=== PATIENT | male | born 1950 | race Caucasian/White ===

== ENCOUNTER → 2017-07-04 | Outpatient (CLI) | payer MEDICARE ==
[~2017-07-04] MED LIST: ALLOPURINOL300 MG PO; ALPRAZOLAM1 MG PO; CARAFATE1 GM PO; CENTRUM SILVER1 EAC3 PO; CLOPIDOGREL75 MG PO; DOC-Q-LACE100 MG PO; FLOMAX0.4 MG PO; FUROSEMIDE40 MG PO; GLIMEPIRIDE2 MG PO; GLUCOPHAGE XR500 MG PO; HEMOCYTE PLUS1 EACH PO; KLOR-CON M2020 MEQ PO; LOVASTATIN40 MG PO; METHADONE HCL10 MG PO; MYRBETRIQ50 MG PO; NAPROXEN500 MG PO; NORCO 7.5-3251 EACH PO; PANTOPRAZOLE SO40 MG PO; PENTOXIFYLLINE400 MG PO; POTASSIUM CHLO10 ME1 PO; RAMIPRIL10 MG PO; REGADENOSON 0.4 MG/5 ML SYR IV ONE; SERTRALINE HCL50 MG PO; TIZANIDINE HCL4 MG PO; TOPROL XL50 MG PO; ZOLPIDEM TARTRA10 MG PO
--- NOTE | 2017-07-10 09:41 | Cardiology Report ---
DATE OF STUDY: July 04, 2017 LEXISCAN NUCLEAR STRESS TEST INDICATIONS: Chest pain. DESCRIPTION OF PROCEDURE: After informed consent, the patient was brought to the stress lab. He was given 11 millicuries of technetium-99 Myoview intravenous, and myocardial perfusion SPECT images in the horizontal long and short axis, and vertical axis. Subsequently, the patient was given 0.4 mg Lexiscan intravenously. Then the patient was given 33 millicuries of technetium-99 Myoview intravenously, and myocardial perfusion SPECT image obtained in the horizontal long and short axis, and vertical axis. Gating images were also obtained. Patient tolerated the procedure without any complications. REPORT: Baseline EKG shows sinus rhythm at 70 beats per minute. Normal axis. Normal intervals. PVCs. Nonspecific ST-T changes. PARAMETERS 1. Resting heart rate 67 beats per minute. 2. Maximum heart rate 92 beats per minute. 3. Resting blood pressure 165/73 mmHg. 4. Maximum blood pressure 177/81 mmHg. REASON FOR TERMINATION: End-point attained. INTERPRETATION 1. Negative chest pain. 2. Negative for arrhythmias. 3. Blood response consistent with Lexiscan. 4. No significant ST-T changes seen during Lexiscan infusion compared to baseline. 5. Analysis of SPECT images reveals uniform radioisotope uptake in all segments of the myocardium without any significant perfusion defects. CONCLUSION 1. No evidence of significant ischemia or infarction on this study. 2. No wall motion abnormalities. 3. Overall ejection fraction is 68%. Job#: [id number]
== END ==
LOC: NM 08:13
DX: I25.10 Atherosclerotic heart disease of native coronary artery without angina pectoris (principal)
CPT/HCPCS: 78452; 93017; A9502

== ENCOUNTER 2018-06-04 05:58 | Observation (INO) | payer MEDICARE ==
[2018-06-01 15:31] LABS: BASOPHILS # (AUTO) 0.1 (0.0-0.1); BASOPHILS % 0.6 % (0.0-1.0); EOSINOPHILS # (AUTO) 0.3 (0.0-0.4); EOSINOPHILS % 2.3 % (0.0-6.0); HEMOGLOBIN 13.1 g/dL (14.0-18.0); LYMPHOCYTES # (AUTO) 3.7 (1.0-3.2); LYMPHOCYTES % 31.9 % (18.0-39.1); MEAN CORPUSCULAR HEMOGLOBIN 24.4 pg (28-32); MEAN CORPUSCULAR HGB CONC 31.2 g/dL (31-35); MEAN CORPUSCULAR VOLUME 78.2 fL (81-99); MONOCYTES # (AUTO) 1.6 (0.2-0.8); MONOCYTES % 13.8 % (4.4-11.3); NEUTROPHILS # (AUTO) 5.9 (2.1-6.9); NEUTROPHILS % 50.9 % (38.7-80.0); PLATELET COUNT 172 x10e3/uL (140-360); RED BLOOD COUNT 5.37 x10e6/uL (4.3-5.7); RED CELL DISTRIBUTION WIDTH 19.5 % (11.7-14.4)
--- NOTE | 2018-06-01 15:32 | Diagnostic Imaging Report ---
EXAMINATION: CHEST 2 VIEWS INDICATION: Pre-op COMPARISON: Chest radiograph 03/30/2018. FINDINGS: The right lateral costophrenic angle is excluded from the field of view. TUBES and LINES: None. LUNGS: Lungs are well inflated. Lungs are clear. There is no evidence of pneumonia or pulmonary edema. PLEURA: No pleural effusion or pneumothorax. HEART AND MEDIASTINUM: The cardiomediastinal silhouette is unremarkable. There are atherosclerotic calcifications within the aorta. BONES AND SOFT TISSUES: No acute osseous lesion. Soft tissues are unremarkable. Mild degenerative changes of the thoracic spine. UPPER ABDOMEN: No free air under the diaphragm. IMPRESSION: No acute radiographic abnormality. Signed by: Dr. Flaco Rogel MD on 06/01/2018 3:28 PM
[2018-06-01 15:46] LABS: ANION GAP 13.7 mmol/L (8-16); BLOOD UREA NITROGEN 19 mg/dL (7-26); BUN/CREATININE RATIO 21 (6-25); CALCIUM 9.8 mg/dL (8.4-10.2); CARBON DIOXIDE 28 mmol/L (22-29); CHLORIDE 105 mmol/L (98-107); CREATININE, SERUM 0.89 mg/dL (0.72-1.25); EST GLOMERULAR FILTRATION RATE > 60 ML/MIN (60-); GLUCOSE 69 mg/dL (74-118); POTASSIUM 4.7 mmol/L (3.5-5.1); SODIUM 142 mmol/L (136-145)
[2018-06-01 19:14] LABS: EOSINOPHILS % (MANUAL) 1 % (0-7); LYMPHOCYTES % (MANUAL) 36 % (19-48); MONOCYTES % (MANUAL) 10 % (3.4-9.0); NEUTROPHILS % (MANUAL) 52 % (40-74); PLATELET ESTIMATE ADEQUATE; PLATELET MORPHOLOGY COMMENT NORMAL; RBC MORPHOLOGY COMMENT NORMAL
[~2018-06-04] VITALS: Ht 167.6 cm; Wt 106.1 kg
[~2018-06-04 05:58] MED LIST changes: +MONTELUKAST SOD10 MG PO; +MULTI-VITAMIN1 EACH; +POTASSIUM CHLO20 ME1; -REGADENOSON 0.4 MG/5 ML SYR IV ONE; +VESICARE5 MG PO
[2018-06-04] MEDS ORDERED: ROPIVACAINE 246.25 MG, EPINEPHRINE HCL 1:1000 0.5 MG, CLONIDINE HCL 0.08 MG, KETOROLAC ... INJ ONE ×5 (06:00)
--- OUTSIDE RECORDS SUMMARY | 2018-06-04 06:02 | XMS REPORT | Clinical Summary ---
Author Author [facility] Organization [facility] Address Unknown Phone Unavailable Care Team Providers Care Radio Interference Supervisor Name Role Phone Emiliano Lee MD PCP Allergies Comments Active Allergy Reactions Severity Noted Date No Known Drug Allergies 05/04/2016 Medications Not on file Active Problems Problem Noted Date Chronic ulcer of lower extremity 05/04/2016 Lymphedema 05/04/2016 Chronic venous insufficiency 05/04/2016 Last Assessment & Plan: 05/06/16 LLE GSV Ablation Family History Medical History Relation Name Comments Diabetes Mother Aneurysm Other Heart disease Other Hypertension Other Relation Name Status Comments Mother Other Social History Date Tobacco Use Types Packs/Day Years Used Never Smoker Alcohol Use Drinks/Week oz/Week Comments No Sex Assigned at Date Recorded Not on file Industry Job Start Date Occupation Not on file Not on file Not on file Travel End Travel History Travel Start No recent travel history available. Last Filed Vital Signs Not on file Plan of Treatment Health Maintenance Due Date Last Done Comments COLON CANCER SCREENING 1999 SHINGRIX VACCINE (1 of 2) 1999 ZOSTER VACCINE 2009 PNEUMOCOCCAL 2014 POLYSACCHARIDE VACCINE AGE 65 AND OVER PNEUMOCOCCAL-13 2014 INFLUENZA VACCINE 01/24/2018 Results Not on fileafter 06/03/2017 Insurance Payer Benefit Subscriber ID Type Phone Address Plan / Group [employer] C[employer] xxxxxxxxxxx HMO [employer] [place] HMO MCR ADV Advance Directives Patient has advance care planning documents on file. For more information, linus e contact: Lio Santana [address] [place], [place] [address] [place] [address]
--- OUTSIDE RECORDS SUMMARY | 2018-06-04 06:02 | XMS REPORT | Continuity of Care Document ---
Author Author [facility] Interface Address Unknown Phone Unavailable Problems Problem Status Onset Date Classification Date Reported Comments Source FESS Active 01/15/2018 [facility] R93.0 Active 11/30/2017 [facility] Pain in left hip 09/27/2017 12/26/2017 [facility] [place] Urgency of urination 07/28/2017 10/30/2017 [facility] UNK Active 06/27/2017 [facility] 924.9 - CONTUSION NOS Active 06/07/2013 [facility] [place] CHD (CORONARY HEART DISEASE)/ BP (HIGH B Active 11/30/2012 [facility] FALL Active 06/08/2012 [facility] Acid reflux Active Problem 12/26/2017 [facility] [place], [facility] [place] ADD Resolved Problem 12/26/2017 [facility] [place], [facility] [place] Anxiety Active Problem 12/26/2017 [facility] [place], [facility] [place] Arthritis Resolved Problem 12/26/2017 [facility] [place], [facility] [place] Chronic pain Resolved Problem 12/26/2017 [facility] [place], [facility] [place] Depression Active Problem 12/26/2017 [facility] [place], [facility] [place] Diabetes mellitus Active Problem 12/26/2017 [facility] [place], [facility] [place] Gout Active Problem 12/26/2017 [facility] [place], [facility] [place] Heart attack Resolved Problem 12/26/2017 [facility] [place], [facility] [place] Hyperlipidemia Active Problem 12/26/2017 [facility] [place], [facility] [place] Hypertension Active Problem 12/26/2017 [facility] [place], [facility] [place] Insomnia Resolved Problem 12/26/2017 [facility] [place], [facility] [place] Chest pain, unspecified 11/03/2017 [facility] [place] Acid reflux Resolved Problem 12/07/2012 [facility] [place] ADD Resolved Problem 12/07/2012 [facility] [place],[facility] Anxiety Resolved Problem 12/07/2012 [facility] [place],[facility] Arthritis Resolved Problem 12/07/2012 [facility] [place],[facility] Chronic pain Resolved Problem 12/07/2012 [facility] [place],[facility] Gout Resolved Problem 12/07/2012 [facility] [place],[facility] Heart attack Resolved Problem 12/07/2012 [facility] [place],[facility] Hyperlipidemia Resolved Problem 12/07/2012 [facility] [place],[facility] Hypertension Resolved Problem 12/07/2012 [facility] [place],[facility] Insomnia Resolved Problem 12/07/2012 [facility] [place],[facility] Benign prostatic hyperplasia with lower urinary tract symptoms 10/30/2017 [facility] Frequency of micturition 10/30/2017 [facility] Essential hypertension 10/30/2017 [facility] 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 10/30/2017 [facility] Old myocardial infarction 10/30/2017 [facility] Type 2 diabetes mellitus without complications 10/30/2017 [facility] Pure hypercholesterolemia, unspecified 10/30/2017 [facility] Personal history of Methicillin resistant Staphylococcus aureus infection 10/30/2017 [facility] prison use of oral hypoglycemic drugs 10/30/2017 [facility] prison use of anticoagulants 10/30/2017 [facility] Presence of aortocoronary bypass graft 10/30/2017 [facility] Gout, unspecified 10/30/2017 [facility] Medications Medication Details Route Status Patient Instructions Ordering Provider Order Date Source lidocaine (ANES) Route: IV, Drug form: INJ, ONCE, Stop date: 07/24/17 13:14:00 [employer] Inactive 07/24/2017 [facility] propofol (ANES) Route: IV, Drug form: INJ, ONCE, Stop date: 07/24/17 13:14:00 [employer] Inactive 07/24/2017 [facility] fentaNYL (ANES) Route: IV, Drug form: INJ, ONCE, Stop date: 07/24/17 13:14:00 [employer] Inactive 07/24/2017 [facility] metoclopramide (ANES) Route: IV, Drug form: INJ, ONCE, Stop date: 07/24/17 13:14:00 [employer] Inactive 07/24/2017 [facility] Amidate (ANES) Route: IV, Drug form: INJ, ONCE, Stop date: 07/24/17 13:14:00 [employer] Inactive 07/24/2017 [facility] ondansetron (ANES) Route: IV, Drug form: INJ, ONCE, Stop date: 07/24/17 13:14:00 [employer] Inactive 07/24/2017 [facility] midazolam (ANES) Route: IV, Drug form: SOLN, ONCE, Stop date: 07/24/17 13:14:00 [employer] Inactive 07/24/2017 [facility] sodium citrate (ANES) Route: PO, Drug Form: INJ, ONCE, Stop date: 07/24/17 13:14:00 [employer] Inactive 07/24/2017 [facility] ciprofloxacin (ANES) Route: IV, Drug form: INJ, ONCE, Stop date: 07/24/17 13:14:00 [employer] Inactive 07/24/2017 [facility] famotidine (ANES) Route: IV, Drug form: INJ, ONCE, Stop date: 07/24/17 13:14:00 [employer] Inactive 07/24/2017 [facility] Lactated Ringers Injection IV (ANES) 1000 mL Route: IV, Total Volume: 1,000, Start date: 07/24/17 12:28:00 [employer], Stop date: 07/24/17 13:28:00 [employer] Inactive 07/24/2017 [facility] Ciprofloxacin 500 MG Oral Tablet [Cipro] 500 mg=1 tab, PO, Q12H, for UTI, X 3 day, # 6 tab, 0 Refill(s) No Longer Active 07/24/2017 [facility] Calcium Chloride 0.0014 MEQ/ML / Potassium Chloride 0.004 MEQ/ML / Sodium Chloride 0.103 MEQ/ML / Sodium Lactate 0.028 MEQ/ML Injectable Solution 1,000 mL, Rate: 25 ml/hr, Infuse over: 40 hr, Route: IV, Dosing Weight 115 kg, Total Volume: 1,000, Start date: 07/24/17 11:53:00 [employer], Duration: 30 day, Stop date: 08/23/17 11:52:00 [employer], 2.35, m2 Inactive 07/24/2017 [facility] Sodium Chloride 0.9% IV 1000 mL 1,000 mL, Rate: 25 ml/hr, Infuse over: 40 hr, Route: IV, Dosing Weight 115 kg, Total Volume: 1,000, Start date: 07/24/17 11:53:00 [employer], Duration: 30 day, Stop date: 08/23/17 11:52:00 [employer], 2.35, m2 Inactive 07/24/2017 [facility] Botulinum Toxin Type A 200 unit, Route: InFILtration(local), Drug form: INJ, ONCE, Dosing Weight 115, kg, Start date: 07/24/17 11:44:00 [employer], Stop date: 07/24/17 11:44:00 CSTNotes: "TO BE RECONSTITUTED AND ADMINISTERED ON LY BY A PHYSICIAN" Reconstitute with preservative free NS only. Stability=4 hours after reconstitution. (Same As: Botox) WASTE: F/P - Red; E -Red Inactive 07/24/2017 [facility] Botulinum Toxin Type A 100 unit, Route: SUB-Q, Drug form: INJ, ONCE, Dosing Weight 115, kg, Start date: 07/21/17 15:27:00 [employer], Stop date: 07/21/17 15:27:00 CSTNotes: "TO BE RECONSTITUTED AND ADMINISTERED ONLY BY A PHYSICIAN" Reconstitute with preservative free NS only. Stability=4 hours after reconstitution. (Same As: Botox) WASTE: F/P - Red; E -Red No Longer Active 07/21/2017 [facility] ONAbotulinumtoxinA 100 unit, Route: INJ, Drug form: INJ, ONCALL, Start date: 07/12/17 6:00:00 [employer], Duration: 1 doses or timesNotes: "TO BE RECONSTITUTED AND ADMINISTERED ONLY BY A PHYSICIAN" Reconstitute with pr eservative free NS only. Stability=4 hours after reconstitution. (Same As: Botox) WASTE: F/P - Red; E -Red No Longer Active 07/12/2017 [facility] rimabotulinumtoxinB Route: SUB-Q, ONCE, Dosing Weight 115, kg, Start date: 07/10/17 13:55:00 [employer], Stop date: 07/10/17 13:55:00 [employer] No Longer Active 07/10/2017 [facility] One-A-Day Men's Health Formula oral tablet 1 tab, PO, BID, 0 Refill(s) Active 07/04/2017 [facility] Ferrous fumarate 324 MG Oral Tablet [Ferrocite] 324 mg=1 tab, PO, BID, 0 Refill(s) Active 07/04/2017 [facility] tamsulosin 0.4 mg oral capsule 0.4 mg=1 cap, PO, Daily, 0 Refill(s) Active 07/04/2017 [facility] sucralfate 1 g oral tablet 1 gm=1 tab, PO, BID, 0 Refill(s) Active 07/04/2017 [facility] sertraline 50 mg oral tablet 50 mg=1 tab, PO, Bedtime, 0 Refill(s) Active 07/04/2017 [facility] ramipril 10 mg oral capsule 10 mg=1 cap, PO, Daily, 0 Refill(s) Active 07/04/2017 [facility] pantoprazole 40 mg oral enteric coated tablet 40 mg=1 tab, PO, BID, 0 Refill(s) Active 07/04/2017 [facility] Metformin hydrochloride 500 MG Oral Tablet 500 mg=1 tab, PO, BID, 0 Refill(s) Active 07/04/2017 [facility] potassium chloride 20 mEq oral tablet, extended release 20 mEq=1 tab, PO, Daily, 0 Refill(s) Active 07/04/2017 [facility] metoprolol 50 mg oral tablet, extended release 50 mg=1 tab, PO, Daily, 0 Refill(s) Active 07/04/2017 [facility] lovastatin 40 mg oral tablet 40 mg=1 tab, PO, Bedtime, 0 Refill(s) Active 07/04/2017 [facility] glimepiride 1 mg oral tablet 1 mg=1 tab, PO, Daily, 0 Refill(s) Active 07/04/2017 [facility] Alprazolam 1 MG Oral Tablet 1 mg=1 tab, PO, PRN, 0 Refill(s) Active 07/04/2017 [facility] Allopurinol 300 mg, PO, Daily, 0 Refill(s) Active 07/03/2017 [facility] clopidogrel 75 MG Oral Tablet [Plavix] 75 mg=1 tab, PO, Daily, 0 Refill(s) Active 07/03/2017 [facility] Methadone See Instructions, 10 mg PO; 3 tablets in AM; 1 in PM, 0 Refill(s) Active 07/03/2017 [facility] clindamycin 150 mg oral capsule 300 mg, 2 cap, PO, Q6H, 80 cap, Substitution Allowed, CAP PO Active [facility] 06/08/2012 [facility] Allergies, Adverse Reactions, Alerts Substance Category Reaction Severity Reaction type Status Date Reported Comments Source Immunizations Immunization Date Given Site Status Last Updated Comments Source Results Order Name Results Value Reference Range Date Interpretation Comments Source Sinus wo contrast CT Sinus wo contrast CT Study: Sinus wo contrast CT 12/14/2017 2:56 PM CDT Ordering Physician: Valerie Doyle MD Clinical Indication: - R93.0 Abnormal findings on diagnostic imaging of skull and head, not elsewhere classified. Paranasal sinus disease. Difficulty breathing. Comparison: November 14, [address] images are obtained on a multidetector helical CT scanner. Sagittal and coronal reformats are acquired. Total exam DLP is 670 MGY -- CM. Frontal sinuses: The frontal sinuses are adequately developed and clear. Nasofrontal ducts are widely patent and clear. Ethmoid air cells: Minimal mucosal thickening is present along anterior ethmoid septations, slightly worse on the left than the right. Posterior ethmoids are clear. Sphenoethmoidal recesses are patent and structurally adequate. Maxillary antra: Mild circumferential mucosal thickening is present in the right maxillary antrum. The right ostiomeatal complex is structurally adequate, but is mildly narrowed due to minimal mucosal thickening. The left maxillary antrum is almost completely opacified with high density, inspissated debris. There is marked opacification of the left ostium and proximal infundibulum. The left hiatus semilunaris is patent and clear. Sphenoid sinuses: Sphenoid sinuses are clear. Nasal cavity: 3 mm [id number] nasal septal deviation is present. There is a 2 mm right lateralizing septal spur which mildly indents mucosa overlying the medial surface of the right inferior turbinate. Hypertrophy of the left inferior turbinate is present. There is paradoxical curvature of the right middle turbinate, with small right middle turbinate sheree bullosa. Miscellaneous: The marcie addie, cribriform plate and planum sphenoidale appear intact. Mastoid air cells are clear. The posterior nasopharynx is grossly unremarkable. The patient has undergone previous left cataract surgery. Visualized portions of brain parenchyma are grossly unremarkable. There are lucencies at the apices of maxillary teeth bilaterally, compatible with dental caries. IMPRESSION: Minimal bilateral ethmoid as well as mild right and near complete left maxillary sinus opacification is present. Sinusitis is chronic. There is marked soft tissue opacification of the left ostium and six-month and fibula. Mild soft tissue narrowing of the right ostiomeatal complex is seen. Mild sgnk-ky-xijxr nasal septal deviation noted, with tiny right lateralizing septal spur which minimally indents mucosa overlying the heel surface of the right inferior turbinate. There is no significant interval change as compared to the previous CT scan of the brain dated 11/14/2017. SL: [id number] 12/14/2017 - - Read by: Sylvia Nicholas MD Dictated Date/time: 12/14/17 16:08 Electronically Signed by: Sylvia Nicholas MD 12/14/17 16:44 FINAL REPORT [place] Ribs unilateral DX Ribs unilateral DX EXAM: Ribs unilateral DX HISTORY: - right rib pain; contusion COMPARISON: Chest radiograph 11/14/2017 Right rib series IMPRESSION: There is a nondisplaced fracture of the lateral aspect of the right fifth and possibly sixth rib seen on image 6. 11/21/2017 - - Read by: Kin Ramirez MD Dictated Date/time: 11/22/17 09:30 Electronically Signed by: Kin Ramirez MD 11/22/17 09:33 FINAL REPORT [facility] Chest 2 views DX Chest 2 views DX EXAM: Chest 2 views DX HISTORY: - R07.9 Chest pain, unspecified COMPARISON: 06/07/2013 The heart size is normal. The lungs are clear. There is no pleural effusion or pneumothorax. Partially visualized right shoulder arthroplasty. Previously seen spinal catheter has been removed. IMPRESSION: No acute abnormality. 10/24/2017 - - Read by: Kin Ramirez MD Dictated Date/time: 10/24/17 15:23 Electronically Signed by: Kin Ramirez MD 10/24/17 15:25 FINAL REPORT [facility] Hip 2/3 views uni w pelvis DX Hip 2/3 views uni w pelvis DX HISTORY: - left hip pain TECHNIQUE: AP view of the pelvis and frog-leg lateral view of the left hip. COMPARISON: None available. FINDINGS: Normal mineralization and anatomic alignment of the bones without fracture or dislocation. The joint spaces are well-maintained without evidence of effusion. Lumbar spondylosis is partially visualized. IMPRESSION: No acute osseous injury. [id number] 09/19/2017 - - Read by: Jesus Harris MD Dictated Date/time: 09/19/17 15:23 Electronically Signed by: Jesus Harris MD 09/19/17 15:24 FINAL REPORT [facility] CHEM PANEL eGFR 84 mL/min/1.73m2 07/03/2017 Result Comment: The eGFR is calculated using the CKD-EPI formula. In most young, healthy individuals the eGFR will be >90 mL/min/1.73m2. The eGFR declines with age. An eGFR of 60-89 may be normal in some populations, particularly the elderly, for whom the CKD-EPI formula has not been extensively validated. Use of the eGFR is not recommended in the following populations: Individuals with unstable creatinine concentrations, including patients and those with serious co-morbid conditions. Patients with extremes in muscle mass or diet. The data above are obtained from the National Kidney Disease Education Program (NKDEP) which additionally recommends that when the eGFR is used in patients with extremes of body mass index for purposes of drug dosing, the eGFR should be multiplied by the estimated BMI. [facility] CHEM PANEL Potassium Lvl 4.2 meq/L 3.5 - 5.1 07/03/2017 [facility] CHEM PANEL Chloride Lvl 101 meq/L 95 - 109 07/03/2017 [facility] CHEM PANEL Calcium Lvl 9.1 mg/dL 8.5 - 10.5 07/03/2017 [facility] CHEM PANEL CO2 28 meq/L 24 - 32 07/03/2017 [facility] CHEM PANEL Glucose Lvl 142 mg/dL 70 - 99 07/03/2017 [facility] CHEM PANEL BUN 19 mg/dL 7 - 22 07/03/2017 [facility] CHEM PANEL Creatinine Lvl 0.93 mg/dL 0.50 - 1.40 07/03/2017 [facility] CHEM PANEL Sodium Lvl 137 meq/L 135 - 145 07/03/2017 [facility] CHEM PANEL AGAP 12.2 meq/L 10.0 - 20.0 07/03/2017 [facility] HEMATOLOGY Eosinophils # 0.2 K/CMM 0.0 - 0.5 07/03/2017 [facility] HEMATOLOGY Basophils # 0.1 K/CMM 0.0 - 0.2 07/03/2017 [facility] HEMATOLOGY Basophils 0.5 % 0.0 - 1.0 07/03/2017 [facility] HEMATOLOGY Segs-Bands # 7.1 K/CMM 1.5 - 8.1 07/03/2017 [facility] HEMATOLOGY Monocytes # 1.4 K/CMM 0.0 - 0.8 07/03/2017 [facility] HEMATOLOGY Lymphocytes # 2.4 K/CMM 1.0 - 5.5 07/03/[address] [facility] Eosinophils 2.2 % 0.0 - 4.0 07/03/[address] [facility] Lymphocytes 21.6 % 20.0 - 40.0 07/03/2017 [facility] HEMATOLOGY Segs 63.2 % 45.0 - 75.0 07/03/[address] [facility] Monocytes 12.5 % 2.0 - 12.0 07/03/[address] [facility] MPV 8.5 fL 7.4 - 10.4 07/03/[address] [facility] MCH 26.2 pg 27.0 - 31.0 07/03/[address] [facility] RDW 16.1 % 11.5 - 14.5 07/03/[address] [facility] MCV 80.0 fL 80.0 - 94.0 07/03/[address] [facility] Platelet 178 K/CMM 133 - 450 07/03/[address] [facility] MCHC 32.8 g/dL 32.0 - 36.0 07/03/[address] [facility] Hgb 14.1 g/dL 14.0 - 18.0 07/03/[address] [facility] Hct 43.1 % 42.0 - 54.0 07/03/[address] [facility] RBC 5.38 M/CMM 4.70 - 6.10 07/03/[address] [facility] WBC 11.3 K/CMM 3.7 - 10.4 07/03/2017 [facility] URINE AND STOOL UA RBC 1 /HPF 0 - 2 07/03/2017 [facility] URINE AND STOOL UA Color Ltyellow 07/03/2017 [facility] URINE AND STOOL UA Urobilinogen <=1.0 mg/dL 0.1 - 1.0 07/03/2017 [facility] URINE AND STOOL UA Blood Negative (07/03/17 5:00 PM) Negative 07/03/2017 [facility] URINE AND STOOL UA Bili Negative *NA* (07/03/17 5:00 PM) Negative 07/03/2017 [facility] URINE AND STOOL UA Leuk Est Negative (07/03/17 5:00 PM) Negative 07/03/2017 [facility] URINE AND STOOL UA Nitrite Negative (07/03/17 5:00 PM) Negative 07/03/2017 [facility] URINE AND STOOL UA Sq Epi Occasional /LPF Few /LPF 07/03/2017 [facility] URINE AND STOOL UA WBC null 0 - 5 07/03/2017 [facility] URINE AND STOOL UA Turbidity Clear (07/03/17 5:00 PM) Clear 07/03/2017 [facility] URINE AND STOOL UA Spec Grav 1.014 <=1.030 07/03/2017 [facility] URINE AND STOOL UA pH 6.0 5.0 - 8.0 07/03/2017 [facility] URINE AND STOOL UA Protein Negative mg/dL Negative mg/dL 07/03/2017 [facility] URINE AND STOOL UA Glucose Negative mg/dL Negative mg/dL 07/03/2017 [facility] URINE AND STOOL UA Ketones Negative mg/dL Negative mg/dL 07/03/2017 [facility] Knee 3 Views Bilateral DX Knee 3 Views Bilateral DX EXAMINATION: Bilateral knees 3 views each. HISTORY: Bilateral knee pain; bilateral knee osteoarthritis FINDINGS: Frontal, oblique, and lateral views of each knee are performed and compared to 05/11/2015. On the left, there is unchanged severe medial and moderate to severe patellofemoral compartment, bicompartmental left knee osteoarthritis. There is severe lateral subluxation at the femorotibial joint and left genu varus alignment, unchanged. There is a moderate-sized left knee effusion. There is no acute fracture identified. There is an ossicle within the medial meniscus which is completely extruded within the medial gutter. On the right, there is unchanged severe medial compartment predominant, tricompartmental right knee osteoarthritis with mild to moderate lateral subluxation at the femorotibial joint. There is a moderate size right knee effusion. There is no acute fracture identified. IMPRESSION: 1. Unchanged severe medial and moderate to severe patellofemoral compartment, bicompartmental left knee osteoarthritis with a moderate-sized left knee effusion. 2. Unchanged severe medial compartment predominant, tricompartmental right knee osseous arthritis with a moderate size right knee effusion. 3. Unchanged lateral subluxation at the bilateral femorotibial joints, severe on the left. There is also left genu varus alignment. 05/17/2016 - - Read by: Pranav Kamara MD Dictated Date/time: 05/17/16 15:01 Electronically Signed by: Pranav Kamara MD 05/17/16 15:05 FINAL REPORT [facility] Knee 3 Views Bilateral DX Knee 3 Views Bilateral DX Bilateral knee x-ray 3 views Clinical History: 65-year-old male with bilateral knee pain right more than left. Comparison: 01/28/2015. Bones are osteopenic. Right knee has 3 compartmental joint space narrowing with prominent osteophytes at the posterior tibial plateau, medial tibial plateau and lateral femoral condyle. There is mild lateral displacement of the tibial plateau on the femur. The proximal fibula is unremarkable. There is no joint effusion. Left knee has subluxation of the tibia lateral on the femoral condyles. There are marginal osteophytes and narrowing of all three joint compartments. No acute fracture or loose body is seen. No significant joint effusion identified. Impression: Severe bilateral knee osteoarthritis similar since 01/28/2015 with mild lateral subluxation of both tibias on the femurs. 05/11/2015 - - Read by: Sami Asif MD Dictated Date/time: 05/11/15 16:01 Electronically Signed by: Sami Asif 05/11/15 16:07 FINAL REPORT JANETTDanish [facility] Knee 3 Views Bilateral DX Knee 3 Views Bilateral DX BILATERAL KNEE SERIES CLINICAL HISTORY: Bilateral knee pain. COMPARISON IMAGIN09/12/2012 radiography. FINDINGS: 6 views of the knees were submitted for interpretation. Bones appear demineralized. Severe tricompartmental osteoarthritis is present bilaterally. These changes include loss of joint space, subluxation, subchondral sclerosis, and marginal osteophytes. Bilateral moderate-sized joint effusions and varus deformities are noted. There is no fracture. IMPRESSION: Severe bilateral osteoarthritis. 01/28/2015 - - Read by: Bronson Hoover MD Dictated Date/time: 01/28/15 14:04 Electronically Signed by: Bronson Hoover MD 01/28/15 14:05 FINAL REPORT [facility] [place] Ribs bilateral Ribs bilateral BILATERAL RIB SERIES CLINICAL HISTORY: fall COMPARISON IMAGING: None. FINDINGS: 6 images of the ribs were submitted for review. There are minimally displaced fractures of the right lateral 6, 8 and possibly 7th ribs. Lungs are clear. Cardiomediastinal silhouette is within normal limits. No obvious pleural fluid is identified. Surgical clips in the right upper abdomen and spinal stimulator device incidentally noted. IMPRESSION: Minimally displaced right rib fractures of the 6th, 8th and possibly seventh rib. 06/07/2013 - - Read by: Geraldine Rachel Dictated Date/time: 06/07/13 14:40 Electronically Signed by: Geraldine Rachel DO 06/07/13 14:50 FINAL REPORT [facility] Chest 2 views Chest 2 views CHEST RADIOGRAPHY CLINICAL HISTORY: Fall COMPARISON IMAGING: None. FINDINGS: Two views of the chest were acquired and submitted for evaluation. No pleural fluid is identified. The contour of the cardiac silhouette is within normal limits. There is no significant pulmonary consolidation or nodularity. Bones appear osteopenic. DEXA scan should be considered if not already performed. right rib fractures are better noted on rib series. No pneumothorax. Right glenohumeral head arthroplasty and spinal stimulator leads noted. IMPRESSION: 1. No acute cardiopulmonary abnormality. 2. Right rib fractures better evaluated on rib series study. No pneumothorax. 06/07/2013 - - Read by: Geraldine Rachel Dictated Date/time: 06/07/13 14:50 Electronically Signed by: Geraldine Rachel DO 06/07/13 14:53 FINAL REPORT [facility] URINALYSIS UA Color Ltyellow 06/08/2012 NA [facility] URINALYSIS UA Urobilinogen <=1.0 mg/dL
*NA*
(06/08/2012 07:46:00) <sup> </sup> 0.1 - 1.0 06/08/2012 [facility] URINALYSIS UA Sq Epi None Seen 06/08/2012 [facility] URINALYSIS UA Leuk Est Negative (06/08/2012 07:46:00) Negative 06/08/2012 Normal [facility] URINALYSIS UA Turbidity Clear (06/08/2012 07:46:00) Clear 06/08/2012 Normal [facility] URINALYSIS UA Spec Grav 1.008 <=1.030 06/08/2012 Normal [facility] URINALYSIS UA pH 7.0 5.0 - 8.0 06/08/2012 Normal [facility] URINALYSIS UA Glucose Negative mg/dL *NA* (06/08/2012 07:46:00) Negative 06/08/2012 NA [facility] URINALYSIS UA Protein Negative mg/dL (06/08/2012 07:46:00) Negative 06/08/2012 Normal [facility] URINALYSIS UA Ketones Negative mg/dL *NA* (06/08/2012 07:46:00) Negative 06/08/2012 NA [facility] URINALYSIS UA Blood Negative (06/08/2012 07:46:00) Negative 06/08/2012 Normal [facility] URINALYSIS UA Bili Negative *NA* (06/08/2012 07:46:00) Negative 06/08/2012 NA [facility] URINALYSIS UA Nitrite Negative (06/08/2012 07:46:00) Negative 06/08/2012 Normal [facility] CHEMISTRY eGFR 80 mL/min/1.73m2 06/08/2012 NA 1Result Comment: The eGFR is calculated using the CKD-EPI formula. In most young, healthy individuals the eGFR will be >90 mL/min/1.73m2. The eGFR declines with age. An eGFR of 60-89 may be normal in some populations, particularly the elderly, for whom the CKD-EPI formula has not been extensively validated. Use of the eGFR is not recommended in the following populations: Individuals with unstable creatinine concentrations, including patients and those with serious co-morbid conditions. Patients with extremes in muscle mass or diet. The data above are obtained from the National Kidney Disease Education Program (NKDEP) which additionally recommends that when the eGFR is used in patients with extremes of body mass index for purposes of drug dosing, the eGFR should be multiplied by the estimated BMI. [facility] CHEMISTRY Calcium Lvl 8.7 mg/dL 8.5 - 10.5 06/08/2012 Normal [facility] CHEMISTRY Chloride Lvl 97 meq/L 95 - 109 06/08/2012 Normal [facility] CHEMISTRY CO2 31 meq/L 24 - 32 06/08/2012 Normal [facility] CHEMISTRY Glucose Lvl 206 mg/dL 70 - 99 06/08/2012 [place] 2Interpretive Data: Adult reference range values reflect the clinical guidelines of the [place] [employer]. [facility] CHEMISTRY BUN 14 mg/dL 7 - 22 06/08/2012 Normal [facility] CHEMISTRY Potassium Lvl 3.8 meq/L 3.5 - 5.1 06/08/2012 Normal [facility] CHEMISTRY Creatinine Lvl 1.0 mg/dL 0.5 - 1.4 06/08/2012 Normal [facility] CHEMISTRY Sodium Lvl 137 meq/L 135 - 145 06/08/2012 Normal [facility] CHEMISTRY AGAP 12.8 meq/L 10.0 - 20.0 06/08/2012 Normal [facility] HEMATOLOGY PTT 29.5 s 22.9 - 35.8 06/08/2012 Normal 4Interpretive Data: Heparin Therapeutic Range: 57 - 92 Seconds [facility] HEMATOLOGY PT 15.4 s 12.0 - 14.7 06/08/2012 [facility] HEMATOLOGY INR 1.20 0.85 - 1.17 06/08/2012 [place] 3Interpretive Data: RECOMMENDED RANGES FOR PROTIME INR: 2.0-3.0 for most medical and surgical thromboembolic states. 2.5-3.5 for artificial heart valves and recurrent embolism. INR SHOULD BE USED ONLY FOR PATIENTS ON STABLE ANTICOAGULANT THERAPY. [facility] HEMATOLOGY MPV 7.5 fL 7.4 - 10.4 06/08/2012 Normal [facility] HEMATOLOGY MCHC 32.5 g/dL 32.0 - 36.0 06/08/2012 Normal [facility] HEMATOLOGY Platelet 188 K/CMM 133 - 450 06/08/2012 Normal [facility] HEMATOLOGY RDW 17.6 % 11.5 - 14.5 06/08/2012 [facility] HEMATOLOGY MCV 76.7 fL 80.0 - 94.0 06/08/2012 LOW [facility] HEMATOLOGY MCH 24.9 pg 27.0 - 31.0 06/08/2012 LOW [facility] HEMATOLOGY Hgb 10.5 g/dL 14.0 - 18.0 06/08/2012 LOW [facility] HEMATOLOGY Hct 32.4 % 42.0 - 54.0 06/08/2012 LOW [facility] HEMATOLOGY RBC 4.22 M/CMM 4.70 - 6.10 06/08/2012 LOW [facility] HEMATOLOGY WBC 17.9 K/CMM 3.7 - 10.4 06/08/2012 [facility] Vital Signs Vital Sign Value Date Comments Source Systolic (mm Hg) 144 07/24/2017 [facility] Diastolic (mm Hg) 76 07/24/2017 [facility] Systolic (mm Hg) 148 07/24/2017 [facility] Diastolic (mm Hg) 68 07/24/2017 [facility] Respitory Rate 16 07/24/2017 [facility] Respitory Rate 14 07/24/2017 [facility] Systolic (mm Hg) 133 07/24/2017 [facility] Diastolic (mm Hg) 67 07/24/2017 [facility] Respitory Rate 12 07/24/2017 [facility] Heart Rate 62 07/03/2017 [facility] Temperature Oral (F) 98.0 F 07/03/2017 [facility] Weight 115 07/03/2017 [facility] BMI Calculated 40.92 07/03/2017 [facility] Height 167.64 cm 07/03/2017 [facility] Weight 109.091 12/05/2012 [facility] Height 167.64 cm 12/05/2012 [facility] Weight 110.000 06/08/2012 [facility] Height 167.64 cm 06/08/2012 [facility] Encounters Location Location Details Encounter Type Encounter Number Reason For Visit Attending Provider ADM Date DC Date Status Source [facility] Emergency [id number] FALL ASEAnabela SOUDION 06/08/2012 06/08/2012 Active [facility] Outpatient [id number] CHD (CORONARY HEART DISEASE)/ BP (HIGH BLOOD PRESSURE) JEFFERSON AMES 12/05/2012 Active [facility] OD [id number] 924.9 - CONTUSION NOS KALYANI DOYLE 06/07/2013 06/07/2013 Active [facility] [place] [facility] [place] [facility] [id number] Tera Gallo 01/28/2015 01/29/2015 [facility] [place] [facility] [place] [facility] [id number] Tera Gallo 05/11/2015 05/12/2015 [facility] [place] [facility] [place] [facility] [id number] Tera Gallo 05/17/2016 05/18/2016 [facility] [place] [facility] [id number] Oscar Moffett 07/24/2017 07/24/2017 [facility] [place] [facility] [id number] Kalyani Burr 09/19/2017 09/20/2017 [facility] [place] [facility] [place] [facility] [id number] Inez Oates 10/24/2017 10/25/2017 [facility] [place] [facility] [place] Out[facility] Diag Services [id number] Kalyani Burr 11/14/2017 11/15/2017 [facility] [place] Out[facility] [id number] Kalyani Burr 11/21/2017 11/22/2017 [facility] [place] [facility] Outpatient [id number] Valerie Doyle 12/14/2017 12/15/2017 [facility] Procedures Procedure Code Date Perfomer Comments Source Amputation great toe [id number] [facility] [place] Angiogram<sup>1</sup> 72270029 approx 2003 [facility] [place] Operation<sup>2, 3</sup> 416920154 tendon one side; heel spur other sideright heel spur [facility] [place] Operation<sup>4</sup> [id number] hardware removed the following week due to [facility] [place] [facility] 605987751 [facility] [place] Shoulder replacement [id number] [facility] [place] Amputation great toe 85530560 [facility] Angiogram<sup>1</sup> 84621547 approx 2003 [facility] [place] Operation<sup>2, 3</sup> 002983954 tendon one side; heel spur other sideright heel spur [facility] Operation<sup>4</sup> 060904419 hardware removed the following week due to infection [facility] Operation [id number] [facility] Shoulder replacement [id number] [facility] [place] Amputation great toe 08830266 [facility] Angiogram<sup>1</sup> 09097627 approx 2003 [facility] Operation<sup>2, 3</sup> 524358494 tendon one side; heel spur other sideright heel spur [facility] Operation<sup>4</sup> 856195980 hardware removed the following week due to infection [facility] Operation [id number] [facility] Shoulder replacement [id number] [facility]
--- OUTSIDE RECORDS SUMMARY | 2018-06-04 06:03 | XMS REPORT | Summary of Care ---
Author Author [facility] [place] Organization [facility] [place] Address Unknown Phone Unavailable Encounter HQ Encntr_shanique(FIN) [id number] Date(s): 05/17/16 - 05/17/16 [facility] [place] [address] [place] [phone] Discharge Disposition: Home or Self Care Attending Physician: Tera Gallo MD Vital Signs No data available for this section Problem List Condition Effective Dates Status Health Status Informant Acid Resolved reflux(Confirmed) ADD(Confirmed) Resolved Anxiety(Confirmed) Resolved Arthritis(Confirmed) Resolved Chronic Resolved pain(Confirmed) Gout(Confirmed) Resolved Heart Resolved attack(Confirmed) Hyperlipidemia(Confi Resolved rmed) Hypertension(Confirm Resolved ed) Insomnia(Confirmed) Resolved Allergies, Adverse Reactions, Alerts Substance Reaction Severity Status NKDA Active Medications No data available for this section Results No data available for this section Immunizations No data available for this section Procedures No data available for this section Social History No data available for this section Assessment and Plan No data available for this section
--- OUTSIDE RECORDS SUMMARY | 2018-06-04 06:03 | XMS REPORT ---
[facility] Address Unknown Phone Unavailable Care Team Providers Care Rehab Nurse Name Role Phone KALYANI GONZALEZ Unavailable Unavailable ALYSON ORDONEZ Unavailable Unavailable Payers Payer Name Policy Type Policy Number Effective Date Expiration Date Problems This patient has no known problems. Allergies, Adverse Reactions, Alerts Allergy Name Allergy Type Status Severity Reaction(s) Onset Date Inactive Date Treating Clinician Comments No Known Allergies DA Active U 2013-08-01 00:00:00 Medications This patient has no known medications. Results Test Description Test Time Test Comments Text Results Atomic Results Result Comments CHEST 2 VIEWS 2018-06-01 15:27:00 [place] [address] Patient Name: TERRIE PUENTES MR #: [id number] : 1950 Age/Sex: 68/M Req #: [id number] Adm Physician: Ordered by: KALYANI GONZALEZ MD Report #: [id number] Location: OR Room/Bed: Procedure: [id number] DX/CHEST 2 VIEWS Exam Date: 06/01/18 Exam Time: 1515 REPORT STATUS: Signed EXAMINATION: CHEST 2 VIEWS INDICATION: Pre-op C OMPARISON: Chest radiograph 03/30/2018. FINDINGS: The right lateral costophrenic angle is excluded from the field of view. TUBES and LINES: None. LUNGS: Lungs are well inflated. Lungs are clear. There is no evidence of pneumonia or pulmonary edema. PLEURA: No pleural effusion or pneumothorax. HEART AND MEDIASTINUM: The cardiomediastinal silhouette is unremarkable. There are atherosclerotic calcifications within the aorta. BONES AND SOFT TISSUES: No acute osseous lesion. Soft tissues are unremarkable. Mild degenerative changes of the thoracic spine. UPPER ABDOMEN: No free air under the diaphragm. IMPRESSION: No acute radiographic abnormality. Signed by: Dr. Jayla Bell MD on 06/01/2018 3:28 PM Dictated By: JAYLA BELL MD 1528 Transcribed By: DANIEL on 06/01/18 1528 COPY TO: KALYANI GONZALEZ MD CHEST 2 VIEWS 2018-03-30 15:24:00 [place] [address] Patient Name: TERRIE PUENTES MR #: [id number] : 1950 Age/Sex: 68/M Req #: [id number] Adm Physician: Ordered by: KALYANI GONZALEZ MD Report #: [id number] Location: OR Room/Bed: Procedure: [id number] DX/CHEST 2 VIEWS Exam Date: Exam Time: REPORT STATUS: Signed EXAMINATION: CHEST 2 VIEWS INDICATION: Pre-op COMPARISON: None FINDINGS: TUBES and LINES: None. LUNGS: Lungs are well inflated. Lungs are clear. There is no evidence of pneumonia or pulmonary edema. PLEURA: No pleural effusion or pneumothorax. HEART AND MEDIASTINUM: The cardiomediastinal silhouette is unremarkable. There are atherosclerotic calcifications within the aorta. BONES AND SOFT TISSUES: No acute osseous lesion. Soft tissues are unremarkable. Partially seen right shoulder arthroplasty. UPPER ABDOMEN: No free air under the diaphragm. IMPRESSION: No acute radiographic abnormality. Signed by: Dr. Jayla Bell MD on 03/30/2018 3:25 PM Dictated By: JAYLA BELL MD 152 Transcribed By: DANIEL on 03/30/18 1528 COPY TO: KALYANI GONZALEZ MD Stress Test - Treadmill ONLY [place] [address] Patient Name : TERRIE PUENTES MR #: [id number] : 1950 Age/Sex: 67/M Adm Physician : ALYSON ORDONEZ MD Admit Date : Location : MD Room/Bed : REPORT: Cardiology Report DATE OF STUDY: July 04, 2017 LEXISCAN NUCLEAR STRESS TEST INDICATIONS: Chest pain. DESCRIPTION OF PROCEDURE: After informed consent, the patient was brought to the stress lab. He was given 11 millicuries of technetium-99 Myoview intravenous, and myocardial perfusion SPECT images in the horizontal long and short axis, and vertical axis. Subsequently, the patient was given 0.4 mg Lexiscan intravenously. Then the patient was given 33 millicuries of technetium-99 Myoview intravenously, and myocardial perfusion SPECT image obtained in the horizontal long and short axis, and vertical axis. Gating images were also obtained. Patient tolerated the procedure without any complications. REPORT: Baseline EKG shows sinus rhythm at 70 beats per minute. Normal axis. Normal intervals. PVCs. Nonspecific ST-T changes. PARAMETERS 1. Resting heart rate 67 beats per minute. 2. Maximum heart rate 92 beats per minute. 3. Resting blood pressure 165/73 mmHg. 4. Maximum blood pressure 177/81 mmHg. REASON FOR TERMINATION: End-point attained. INTERPRETATION 1. Negative chest pain. 2. Negative for arrhythmias. 3. Blood response consistent with Lexiscan. 4. No significant ST-T changes seen during Lexiscan infusion compared to baseline. 5. Analysis of SPECT images reveals uniform radioisotope uptake in all segments of the myocardium without any significant perfusion defects. CONCLUSION 1. No evidence of significant ischemia or infarction on this study. 2. No wall motion abnormalities. 3. Overall ejection fraction is 68%. Job#: [id number] RI Signature Date Dictated By: ALYSON ORDONEZ MD Transcribed By: EDS on 07/10/17 <Electronically signed by ALYSON ORDONEZ MD><<Signature on File>>07/11/17 [id number] COPY TO:
--- OUTSIDE RECORDS SUMMARY | 2018-06-04 06:03 | XMS REPORT | Summary of Care ---
Author Author [facility] [place] Organization [facility] [place] Address Unknown Phone Unavailable Encounter HQ Steve_shanique(FIN) [id number] Date(s): 10/24/17 - 10/24/17 [facility] [place] [address] [place] [phone] Discharge Disposition: Home or Self Care Attending Physician: Inez Oates MD Vital Signs No data available for this section Problem List Condition Effective Dates Status Health Status Informant Acid Active reflux(Confirmed) ADD(Confirmed) Resolved Anxiety(Confirmed) Active Arthritis(Confirmed) Resolved Chronic Resolved pain(Confirmed) Depression(Confirmed Active ) Diabetes Active mellitus(Confirmed) Gout(Confirmed) Active Heart Resolved attack(Confirmed) Hyperlipidemia(Confi Active rmed) Hypertension(Confirm Active ed) Insomnia(Confirmed) Resolved Allergies, Adverse Reactions, Alerts Substance Reaction Severity Status NKDA Active Medications No data available for this section Results No data available for this section Immunizations No data available for this section Procedures Procedure Date Related Diagnosis Body Site Status Amputation great toe Completed Angiogram1 Completed Operation2, 3 Completed Operation4 Completed Operation Completed Shoulder replacement Completed 1approx 2003 2tendon one side; heel spur other side 3right heel spur 4hardware removed the following week due to infection Social History Social History Type Response Substance Abuse Use: None. Alcohol Current, Frequency: 1-2 times per month. Smoking Status Never smoker; Exposure to Tobacco Smoke None; Cigarette Smoking Last 365 Days No; Reg Smoking Cessation Counseling No entered on: 07/03/17 Assessment and Plan No data available for this section
--- OUTSIDE RECORDS SUMMARY | 2018-06-04 06:03 | XMS REPORT | CCD ---
Author Author Auto Generated Organization [facility] [place] Address Unknown Phone Unavailable Care Team Providers Care Master Control Operator Name Role Phone Jose Doyle CP Allergies, Adverse Reactions, Alerts Substance Reaction Status NKDA Active Problem List Condition Effective Dates Status Acid reflux Resolved ADD Resolved Anxiety Resolved Arthritis Resolved Chronic pain Resolved Gout Resolved Heart attack Resolved Hyperlipidemia Resolved Hypertension Resolved Insomnia Resolved
--- OUTSIDE RECORDS SUMMARY | 2018-06-04 06:03 | XMS REPORT | CCD ---
Author Author Auto Generated Organization [facility] [place] Address Unknown Phone Unavailable Care Team Providers Care Conservation Coordinator Name Role Phone Jose Doyle CP Allergies, Adverse Reactions, Alerts Substance Reaction Status NKDA Active Problem List Condition Effective Dates Status Acid reflux Resolved ADD Resolved Anxiety Resolved Arthritis Resolved Chronic pain Resolved Gout Resolved Heart attack Resolved Hyperlipidemia Resolved Hypertension Resolved Insomnia Resolved
--- OUTSIDE RECORDS SUMMARY | 2018-06-04 06:03 | XMS REPORT | CCD ---
Author Author Auto Generated Organization [facility] Outpatient [facility] [place] Address Unknown Phone Unavailable Care Team Providers Care Dairy Consultant Name Role Phone Jose Doyle CP Allergies, Adverse Reactions, Alerts Substance Reaction Status NKDA Active Problem List Condition Effective Dates Status Acid reflux Resolved ADD Resolved Anxiety Resolved Arthritis Resolved Chronic pain Resolved Gout Resolved Heart attack Resolved Hyperlipidemia Resolved Hypertension Resolved Insomnia Resolved
--- OUTSIDE RECORDS SUMMARY | 2018-06-04 06:03 | XMS REPORT | Summary of Care ---
Author Author [facility] [place] Organization [facility] [place] Address Unknown Phone Unavailable Encounter HQ Srinintr_shanique(FIN) [id number] Date(s): 01/28/15 - 01/28/15 [facility] [place] [address] [place], [place] [address] [phone] Discharge Disposition: Home Attending Physician: Tera Gallo MD Vital Signs [...]
--- OUTSIDE RECORDS SUMMARY | 2018-06-04 06:03 | XMS REPORT | Summary of Care ---
Author Author [facility] [place] Organization [facility] [place] Address Unknown Phone Unavailable Encounter HQ Steve_shanique(FIN) [id number] Date(s): 11/21/17 - 11/21/17 [facility] [place] [address] [place] [phone] Discharge Disposition: Home or Self Care Attending Physician: Jose Burr DO Vital Signs No data available for this [...]
--- OUTSIDE RECORDS SUMMARY | 2018-06-04 06:03 | XMS REPORT | Summary of Care ---
Author Author [facility] [place] Organization [facility] [place] Address Unknown Phone Unavailable Encounter HQ Delmisr_shanique(FIN) [id number] Date(s): 09/19/17 - 09/19/17 [facility] [place] [address] [place] [phone] Encounter Diagnosis Pain in left hip (Final) - 09/26/17 Discharge Disposition: Home or Self Care Attending [...]
--- OUTSIDE RECORDS SUMMARY | 2018-06-04 06:03 | XMS REPORT | CCD ---
Author Author Auto Generated Organization [facility] Address Unknown Phone Unavailable Care Team Providers Care Astronomy Teacher Name Role Phone Ira Lau CP Allergies, Adverse Reactions, Alerts Substance Reaction Status NKDA Active Problem List Condition Effective Dates Status Acid reflux Resolved ADD Resolved Anxiety Resolved Arthritis Resolved Chronic pain Resolved Gout Resolved Heart attack Resolved Hyperlipidemia Resolved Hypertension Resolved Insomnia Resolved Medications Medication Instructions Start Date End Date Status clindamycin 150 mg 300 mg, 2 cap, PO, Q6H, 80 cap, 06/08/2012 06/18/2012 Ordered oral capsule Substitution Allowed, CAP Vital Signs Most recent to oldest [Reference Range]: 1 Height 167.64 cm (06/08/2012 04:42:00) Weight 110.000 kg (06/08/2012 04:42:00) Results URINALYSIS Most recent to oldest [Reference Range]: 1 UA Turbidity [Clear] Clear (06/08/2012 07:46:00) UA Color Ltyellow *NA* (06/08/2012 07:46:00) UA pH [5.0-8.0] 7.0 (06/08/2012 07:46:00) UA Spec Grav [<=1.030] 1.008 (06/08/2012 07:46:00) UA Glucose [Negative mg/dL] Negative mg/dL *NA* (06/08/2012 07:46:00) UA Blood [Negative] Negative (06/08/2012 07:46:00) UA Ketones [Negative mg/dL] Negative mg/dL *NA* (06/08/2012 07:46:00) UA Protein [Negative mg/dL] Negative mg/dL (06/08/2012 07:46:00) UA Urobilinogen [0.1-1.0 mg/dL] <=1.0 mg/dL *NA* (06/08/2012 07:46:00) UA Bili [Negative] Negative *NA* (06/08/2012 07:46:00) UA Leuk Est [Negative] Negative (06/08/2012 07:46:00) UA Nitrite [Negative] Negative (06/08/2012 07:46:00) UA Sq Epi None Seen *NA* (06/08/2012 07:46:00) CHEMISTRY Most recent to oldest [Reference Range]: 1 Sodium Lvl [135-145 mEq/L] 137 mEq/L (06/08/2012 06:36:00) Potassium Lvl [3.5-5.1 mEq/L] 3.8 mEq/L (06/08/2012 06:36:00) Chloride Lvl [95-109 mEq/L] 97 mEq/L (06/08/2012 06:36:00) CO2 [24-32 mEq/L] 31 mEq/L (06/08/2012 06:36:00) AGAP [10.0-20.0 mEq/L] 12.8 mEq/L (06/08/2012 06:36:00) Creatinine Lvl [0.5-1.4 mg/dL] 1.0 mg/dL (06/08/2012 06:36:00) eGFR 80 mL/min/1.73m2 1 *NA* (06/08/2012 06:36:00) BUN [7-22 mg/dL] 14 mg/dL (06/08/2012 06:36:00) Glucose Lvl [70-99 mg/dL] 206 mg/dL 2 *HI* (06/08/2012 06:36:00) Calcium Lvl [8.5-10.5 mg/dL] 8.7 mg/dL (06/08/2012 06:36:00) 1Result Comment: The eGFR is calculated using [...] from the National Kidney Disease Education Program ( NKDEP) which additionally recommends that when the eGFR is used in patients with extremes of body mass index for purposes of drug dosing, the eGFR should be mul tiplied by the estimated BMI. 2Interpretive Data: Adult reference range values reflect the clinical guidelines of the [place] [employer]. HEMATOLOGY Most recent to oldest [Reference Range]: 1 WBC [3.7-10.4 K/CMM] 17.9 K/CMM *HI* (06/08/2012 06:36:00) RBC [4.70-6.10 M/CMM] 4.22 M/CMM *LOW* (06/08/2012 06:36:00) Hgb [14.0-18.0 g/dL] 10.5 g/dL *LOW* (06/08/2012 06:36:00) Hct [42.0-54.0 %] 32.4 % *LOW* (06/08/2012 06:36:00) MCV [80.0-94.0 fL] 76.7 fL *LOW* (06/08/2012 06:36:00) MCH [27.0-31.0 pg] 24.9 pg *LOW* (06/08/2012 06:36:00) MCHC [32.0-36.0 g/dL] 32.5 g/dL (06/08/2012 06:36:00) RDW [11.5-14.5 %] 17.6 % *HI* (06/08/2012 06:36:00) Platelet [133-450 K/CMM] 188 K/CMM (06/08/2012 06:36:00) MPV [7.4-10.4 fL] 7.5 fL (06/08/2012 06:36:00) PT [12.0-14.7 seconds] 15.4 seconds *HI* (06/08/2012 06:36:00) INR [0.85-1.17] 1.20 3 *HI* (06/08/2012 06:36:00) PTT [22.9-35.8 seconds] 29.5 seconds 4 (06/08/2012 06:36:00) 3Interpretive Data: RECOMMENDED RANGES FOR PROTIME INR: 2.0-3.0 for most medical and surgical thromboembolic states. 2.5-3.5 for artificial heart valves and recurrent embolism. INR SHOULD BE USED ONLY FOR PATIENTS ON STABLE ANTICOAGULANT THERAPY. 4Interpretive Data: Heparin Therapeutic Range: 57 - 92 Seconds
--- OUTSIDE RECORDS SUMMARY | 2018-06-04 06:03 | XMS REPORT | CCD ---
Author Author Auto Generated Organization [facility] Outpatient Imaging - [place] Address Unknown Phone Unavailable Care Team Providers Care Folding Rules Printing Machine Operator Name Role Phone Jose Doyle CP Allergies, Adverse Reactions, Alerts Substance Reaction Status NKDA Active Problem List Condition Effective Dates Status Acid reflux Resolved ADD Resolved Anxiety Resolved Arthritis Resolved Chronic pain Resolved Gout Resolved Heart attack Resolved Hyperlipidemia Resolved Hypertension Resolved Insomnia Resolved
--- OUTSIDE RECORDS SUMMARY | 2018-06-04 06:03 | XMS REPORT | Summary of Care ---
Author Author [facility] Outpatient Imaging - [place] Organization [facility] Outpatient Imaging - [place] Address Unknown Phone Unavailable Encounter HQ Delmisr_shanique(FIN) [id number] Date(s): 05/11/15 - 05/11/15 [facility] Outpatient Imaging - [place] [address] [place], [place] [address] [phone] Discharge Disposition: Home Attending Physician: Tera Gallo [...]
--- OUTSIDE RECORDS SUMMARY | 2018-06-04 06:03 | XMS REPORT | CCD ---
Author Author Auto Generated Organization [facility] Outpatient Imaging - [place] Address Unknown Phone Unavailable Care Team Providers Care Banking Analyst Name Role Phone Jose Doyle CP Allergies, Adverse Reactions, Alerts Substance Reaction Status NKDA Active Problem List Condition Effective Dates Status Acid reflux Resolved ADD Resolved Anxiety Resolved Arthritis Resolved Chronic pain Resolved Gout Resolved Heart attack Resolved Hyperlipidemia Resolved Hypertension Resolved Insomnia Resolved
--- OUTSIDE RECORDS SUMMARY | 2018-06-04 06:03 | XMS REPORT | CCD ---
Author Author Auto Generated Organization [facility] Outpatient Imaging - [place] Address Unknown Phone Unavailable Care Team Providers Care Clinical Study Manager Name Role Phone Jose Doyle CP Allergies, Adverse Reactions, Alerts Substance Reaction Status NKDA Active Problem List Condition Effective Dates Status Acid reflux Resolved ADD Resolved Anxiety Resolved Arthritis Resolved Chronic pain Resolved Gout Resolved Heart attack Resolved Hyperlipidemia Resolved Hypertension Resolved Insomnia Resolved
--- OUTSIDE RECORDS SUMMARY | 2018-06-04 06:03 | XMS REPORT | Summary of Care ---
Author Author [facility] Organization [facility] Address Unknown Phone Unavailable Encounter HQ Graciela(FIN) [id number] Date(s): 12/14/17 - 12/14/17 [facility] [address] [place] [address]- Discharge Disposition: Home or Self Care Attending Physician: Valerie Doyle MD Referring Physician: Valerie Doyle MD Vital Signs No data available for [...]
--- OUTSIDE RECORDS SUMMARY | 2018-06-04 06:03 | XMS REPORT | CCD ---
Author Author Auto Generated Organization [facility] Outpatient Imaging - [place] Address Unknown Phone Unavailable Care Team Providers Care Cash Controller Name Role Phone Jose Doyle CP Allergies, Adverse Reactions, Alerts Substance Reaction Status NKDA Active Problem List Condition Effective Dates Status Acid reflux Resolved ADD Resolved Anxiety Resolved Arthritis Resolved Chronic pain Resolved Gout Resolved Heart attack Resolved Hyperlipidemia Resolved Hypertension Resolved Insomnia Resolved
--- OUTSIDE RECORDS SUMMARY | 2018-06-04 06:03 | XMS REPORT | Summary of Care ---
Author Author [facility] Outpatient Imaging - [place] Organization [facility] Outpatient Imaging - [place] Address Unknown Phone Unavailable Encounter HQ Steve_shanique(FIN) [id number] Date(s): 10/24/17 - 10/24/17 [facility] Outpatient Imaging - [place] [address] [place] [address]- [phone] Encounter Diagnosis Chest pain, unspecified (Final) - Discharge Disposition: Home or Self Care Attending [...]
--- OUTSIDE RECORDS SUMMARY | 2018-06-04 06:03 | XMS REPORT | CCD ---
Author Author Auto Generated Organization [facility] Address Unknown Phone Unavailable Care Team Providers Care Violent Crimes Detective Name Role Phone DustinNiraj RP Allergies, Adverse Reactions, Alerts Substance Reaction Status NKDA Active Problem List Condition Effective Dates Status Acid reflux Resolved ADD Resolved Anxiety Resolved Arthritis Resolved Chronic pain Resolved Gout Resolved Heart attack Resolved Hyperlipidemia Resolved Hypertension Resolved Insomnia Resolved Vital Signs Most recent to oldest [Reference Range]: 1 Height 167.64 cm (12/05/2012 10:16:00) Weight 109.091 kg (12/05/2012 10:16:00)
--- OUTSIDE RECORDS SUMMARY | 2018-06-04 06:03 | XMS REPORT | Summary of Care ---
Author Author [facility] Organization [facility] Address Unknown Phone Unavailable Encounter JESUS Owens(ANETTE) [id number] Date(s): 07/24/17 - 07/24/17 [facility] [address] [place] [address]- [phone] Encounter Diagnosis Urgency of urination (Final) - 07/27/17 Benign prostatic hyperplasia with lower urinary tract symptoms (Final) - Frequency of micturition (Final) - Essential (primary) hypertension (Final) - Atherosclerotic heart disease of [place] coronary artery without angina pectoris (Final) - Old myocardial infarction (Final) - Type 2 diabetes mellitus without complications (Final) - Pure hypercholesterolemia, unspecified (Final) - Personal history of Methicillin resistant Staphylococcus aureus infection (Final) - meterman (current) use of oral hypoglycemic drugs (Final) - meterman (current) use of anticoagulants (Final) - Presence of aortocoronary bypass graft (Final) - Gout, unspecified (Final) - Discharge Disposition: Home or Self Care Attending Physician: Oscar Moffett MD Referring Physician: Oscar Moffett MD Vital Signs 1 2 3 Most recent to oldest [Reference Range]: 167.64 cm (07/03/17 3:50 PM) Height 98.0 DegF (07/03/17 4:05 PM) Temperature Oral [96.4-99.1 DegF] 144/76 mmHg *HI* (07/24/17 2:15 PM) 148/68 mmHg *HI* (07/24/17 1:45 PM) 133/67 mmHg (07/24/17 1:30 PM) Blood Pressure [90-140/60-90 mmHg] 16 BRMIN (07/24/17 1:45 PM) 14 BRMIN (07/24/17 1:30 PM) 12 BRMIN *LOW* (07/24/17 1:15 PM) Respiratory Rate [14-20 BRMIN] 62 bpm (07/03/17 4:05 PM) Peripheral Pulse Rate [60-100 bpm] 115 kg (07/03/17 3:50 PM) Weight 40.92 m2 (07/03/17 3:50 PM) Body Mass Index Problem List Condition Effective Dates Status Health Status Informant Acid Active reflux(Confirmed) ADD(Confirmed) Resolved Anxiety(Confirmed) Active Arthritis(Confirmed) Resolved Chronic Resolved pain(Confirmed) Depression(Confirmed Active ) Diabetes Active mellitus(Confirmed) Gout(Confirmed) Active Heart Resolved attack(Confirmed) Hyperlipidemia(Confi Active rmed) Hypertension(Confirm Active ed) Insomnia(Confirmed) Resolved Allergies, Adverse Reactions, Alerts Substance Reaction Severity Status NKDA Active Medications allopurinol 300 mg, PO, Daily, 0 Refill(s) Start Date: 07/03/17 Status: Ordered ALPRAZOLam 1 mg oral tablet 1 mg=1 tab, PO, PRN, 0 Refill(s) Start Date: 07/04/17 Status: Ordered Amidate (ANES) Route: IV, Drug form: INJ, ONCE, Stop date: 07/24/17 13:14:00 TRADE ANALYST Start Date: 07/24/17 Stop Date: 07/24/17 Status: Completed botulinum toxin type B Route: SUB-Q, ONCE, Dosing Weight 115, kg, Start date: 07/10/17 13:55:00 TRADE ANALYST, St op date: 07/10/17 13:55:00 TRADE ANALYST Start Date: 07/10/17 Stop Date: 07/24/17 Status: Deleted Cipro 500 mg oral tablet 500 mg=1 tab, PO, Q12H, for UTI, X 3 day, # 6 tab, 0 Refill(s) Start Date: 07/24/17 Stop Date: 07/27/17 Status: Completed ciprofloxacin (ANES) Route: IV, Drug form: INJ, ONCE, Stop date: 07/24/17 13:14:00 TRADE ANALYST Start Date: 07/24/17 Stop Date: 07/24/17 Status: Completed famotidine (ANES) Route: IV, Drug form: INJ, ONCE, Stop date: 07/24/17 13:14:00 TRADE ANALYST Start Date: 07/24/17 Stop Date: 07/24/17 Status: Completed fentaNYL (ANES) Route: IV, Drug form: INJ, ONCE, Stop date: 07/24/17 13:14:00 TRADE ANALYST Start Date: 07/24/17 Stop Date: 07/24/17 Status: Completed Ferrocite 324 mg oral tablet 324 mg=1 tab, PO, BID, 0 Refill(s) Start Date: 07/04/17 Status: Ordered glimepiride 1 mg oral tablet 1 mg=1 tab, PO, Daily, 0 Refill(s) Start Date: 07/04/17 Status: Ordered Lactated Ringers Injection IV (ANES) 1000 mL Route: IV, Total Volume: 1,000, Start date: 07/24/17 12:28:00 TRADE ANALYST, Stop date: 13:28:00 TRADE ANALYST Start Date: 07/24/17 Stop Date: 07/24/17 Status: Completed Lactated Ringers Injection IV 1000 mL 1,000 mL, Rate: 25 ml/hr, Infuse over: 40 hr, Route: IV, Dosing Weight 115 kg, T otal Volume: 1,000, Start date: 07/24/17 11:53:00 TRADE ANALYST, Duration: 30 day, Stop da te: 08/23/17 11:52:00 TRADE ANALYST, 2.35, m2 Start Date: 07/24/17 Stop Date: 07/24/17 Status: Discontinued lidocaine (ANES) Route: IV, Drug form: INJ, ONCE, Stop date: 07/24/17 13:14:00 TRADE ANALYST Start Date: 07/24/17 Stop Date: 07/24/17 Status: Completed lovastatin 40 mg oral tablet 40 mg=1 tab, PO, Bedtime, 0 Refill(s) Start Date: 07/04/17 Status: Ordered metFORMIN 500 mg oral tablet 500 mg=1 tab, PO, BID, 0 Refill(s) Start Date: 07/04/17 Status: Ordered methadone See Instructions, 10 mg PO; 3 tablets in AM; 1 in PM, 0 Refill(s) Start Date: 07/03/17 Status: Ordered metoclopramide (ANES) Route: IV, Drug form: INJ, ONCE, Stop date: 07/24/17 13:14:00 TRADE ANALYST Start Date: 07/24/17 Stop Date: 07/24/17 Status: Completed metoprolol 50 mg oral tablet, extended release 50 mg=1 tab, PO, Daily, 0 Refill(s) Start Date: 07/04/17 Status: Ordered midazolam (ANES) Route: IV, Drug form: SOLN, ONCE, Stop date: 07/24/17 13:14:00 TRADE ANALYST Start Date: 07/24/17 Stop Date: 07/24/17 Status: Completed ONAbotulinumtoxinA 100 unit, Route: INJ, Drug form: INJ, ONCALL, Start date: 07/12/17 6:00:00 TRADE ANALYST, Duration: 1 doses or times Notes: "TO BE RECONSTITUTED AND ADMINISTERED ONLY BY A PHYSICIAN"Reconstitute wi th preservative free NS only. Stability=4 hours after reconstitution. (Same As: Botox)WASTE: F/P - Red; E -Red Start Date: 07/12/17 Stop Date: 07/24/17 Status: Discontinued ONAbotulinumtoxinA 100 unit, Route: SUB-Q, Drug form: INJ, ONCE, Dosing Weight 115, kg, Start date: 07/21/17 15:27:00 TRADE ANALYST, Stop date: 07/21/17 15:27:00 TRADE ANALYST Notes: "TO BE RECONSTITUTED AND ADMINISTERED ONLY BY A PHYSICIAN"Reconstitute wi th preservative free NS only. Stability=4 hours after reconstitution. (Same As: Botox)WASTE: F/P - Red; E -Red Start Date: 07/21/17 Stop Date: 08/03/17 Status: Discontinued ONAbotulinumtoxinA 200 unit, Route: InFILtration(local), Drug form: INJ, ONCE, Dosing Weight 115, k g, Start date: 07/24/17 11:44:00 TRADE ANALYST, Stop date: 07/24/17 11:44:00 TRADE ANALYST Notes: "TO BE RECONSTITUTED AND ADMINISTERED ONLY BY A PHYSICIAN"Reconstitute wi th preservative free NS only. Stability=4 hours after reconstitution. (Same As: Botox)WASTE: F/P - Red; E -Red Start Date: 07/24/17 Stop Date: 07/24/17 Status: Deleted ondansetron (ANES) Route: IV, Drug form: INJ, ONCE, Stop date: 07/24/17 13:14:00 TRADE ANALYST Start Date: 07/24/17 Stop Date: 07/24/17 Status: Completed One-A-Day Men's Health Formula oral tablet 1 tab, PO, BID, 0 Refill(s) Start Date: 07/04/17 Status: Ordered pantoprazole 40 mg oral enteric coated tablet 40 mg=1 tab, PO, BID, 0 Refill(s) Start Date: 07/04/17 Status: Ordered Plavix 75 mg oral tablet 75 mg=1 tab, PO, Daily, 0 Refill(s) Start Date: 07/03/17 Status: Ordered potassium chloride 20 mEq oral tablet, extended release 20 mEq=1 tab, PO, Daily, 0 Refill(s) Start Date: 07/04/17 Status: Ordered propofol (ANES) Route: IV, Drug form: INJ, ONCE, Stop date: 07/24/17 13:14:00 TRADE ANALYST Start Date: 07/24/17 Stop Date: 07/24/17 Status: Completed ramipril 10 mg oral capsule 10 mg=1 cap, PO, Daily, 0 Refill(s) Start Date: 07/04/17 Status: Ordered sertraline 50 mg oral tablet 50 mg=1 tab, PO, Bedtime, 0 Refill(s) Start Date: 07/04/17 Status: Ordered Sodium Chloride 0.9% IV 1000 mL 1,000 mL, Rate: 25 ml/hr, Infuse over: 40 hr, Route: IV, Dosing Weight 115 kg, T otal Volume: 1,000, Start date: 07/24/17 11:53:00 TRADE ANALYST, Duration: 30 day, Stop da te: 08/23/17 11:52:00 TRADE ANALYST, 2.35, m2 Start Date: 07/24/17 Stop Date: 07/24/17 Status: Discontinued sodium citrate (ANES) Route: PO, Drug Form: INJ, ONCE, Stop date: 07/24/17 13:14:00 TRADE ANALYST Start Date: 07/24/17 Stop Date: 07/24/17 Status: Completed sucralfate 1 g oral tablet 1 gm=1 tab, PO, BID, 0 Refill(s) Start Date: 07/04/17 Status: Ordered tamsulosin 0.4 mg oral capsule 0.4 mg=1 cap, PO, Daily, 0 Refill(s) Start Date: 07/04/17 Status: Ordered Results ELECTROLYTES Most recent to 1 oldest [Reference Range]: Sodium Lvl [135-145 137 mEq/L mEq/L] (07/03/17 5:00 PM) Potassium Lvl 4.2 mEq/L [3.5-5.1 mEq/L] (07/03/17 5:00 PM) Chloride Lvl [95-109 101 mEq/L mEq/L] (07/03/17 5:00 PM) CO2 [24-32 mEq/L] 28 mEq/L (07/03/17 5:00 PM) AGAP [10.0-20.0 12.2 mEq/L mEq/L] (07/03/17 5:00 PM) CHEM PANEL Most recent to 1 oldest [Reference Range]: Creatinine Lvl 0.93 mg/dL [0.50-1.40 mg/dL] (07/03/17 5:00 PM) eGFR 84 mL/min/1.73m2 1 *NA* (07/03/17 5:00 PM) BUN [7-22 mg/dL] 19 mg/dL (07/03/17 5:00 PM) Glucose Lvl [70-99 142 mg/dL mg/dL] *HI* (07/03/17 5:00 PM) Calcium Lvl 9.1 mg/dL [8.5-10.5 mg/dL] (07/03/17 5:00 PM) 1Result Comment: The eGFR is calculated using [...] be mul tiplied by the estimated BMI. URINE AND STOOL Most recent to 1 oldest [Reference Range]: UA Turbidity [Clear] Clear (07/03/17 5:00 PM) UA Color Ltyellow *NA* (07/03/17 5:00 PM) UA pH [5.0-8.0] 6.0 (07/03/17 5:00 PM) UA Spec Grav 1.014 [<=1.030] (07/03/17 5:00 PM) UA Glucose [Negative Negative mg/dL mg/dL] *NA* (07/03/17 5:00 PM) UA Blood [Negative] Negative (07/03/17 5:00 PM) UA Ketones [Negative Negative mg/dL mg/dL] *NA* (07/03/17 5:00 PM) UA Protein [Negative Negative mg/dL mg/dL] (07/03/17 5:00 PM) UA Urobilinogen <=1.0 mg/dL [0.1-1.0 mg/dL] *NA* (07/03/17 5:00 PM) UA Bili [Negative] Negative *NA* (07/03/17 5:00 PM) UA Leuk Est Negative [Negative] (07/03/17 5:00 PM) UA Nitrite Negative [Negative] (07/03/17 5:00 PM) UA WBC [0-5 /HPF] <1 /HPF (07/03/17 5:00 PM) UA RBC [0-2 /HPF] 1 /HPF (07/03/17 5:00 PM) UA Sq Epi [Few /LPF] Occasional /LPF *NA* (07/03/17 5:00 PM) HEMATOLOGY Most recent to 1 oldest [Reference Range]: WBC [3.7-10.4 K/CMM] 11.3 K/CMM *HI* (07/03/17 5:00 PM) RBC [4.70-6.10 5.38 M/CMM M/CMM] (07/03/17 5:00 PM) Hgb [14.0-18.0 g/dL] 14.1 g/dL (07/03/17 5:00 PM) Hct [42.0-54.0 %] 43.1 % (07/03/17 5:00 PM) MCV [80.0-94.0 fL] 80.0 fL (07/03/17 5:00 PM) MCH [27.0-31.0 pg] 26.2 pg *LOW* (07/03/17 5:00 PM) MCHC [32.0-36.0 32.8 g/dL g/dL] (07/03/17 5:00 PM) RDW [11.5-14.5 %] 16.1 % *HI* (07/03/17 5:00 PM) MPV [7.4-10.4 fL] 8.5 fL (07/03/17 5:00 PM) Platelet [133-450 178 K/CMM K/CMM] (07/03/17 5:00 PM) Segs [45.0-75.0 %] 63.2 % (07/03/17 5:00 PM) Lymphocytes 21.6 % [20.0-40.0 %] (07/03/17 5:00 PM) Monocytes [2.0-12.0 12.5 % %] *HI* (07/03/17 5:00 PM) Eosinophils [0.0-4.0 2.2 % %] (07/03/17 5:00 PM) Basophils [0.0-1.0 0.5 % %] (07/03/17 5:00 PM) Segs-Bands # 7.1 K/CMM [1.5-8.1 K/CMM] (07/03/17 5:00 PM) Lymphocytes # 2.4 K/CMM [1.0-5.5 K/CMM] (07/03/17 5:00 PM) Monocytes # [0.0-0.8 1.4 K/CMM K/CMM] *HI* (07/03/17 5:00 PM) Eosinophils # 0.2 K/CMM [0.0-0.5 K/CMM] (07/03/17 5:00 PM) Basophils # [0.0-0.2 0.1 K/CMM K/CMM] (07/03/17 5:00 PM) Immunizations No data available for this section [...]
--- OUTSIDE RECORDS SUMMARY | 2018-06-04 06:03 | XMS REPORT | Summary of Care ---
Author Author [facility] Outpatient Imaging [facility] Outpatient Imaging [facility] Address Unknown Phone Unavailable Encounter HQ Srinintr_shanique(FIN) [id number] Date(s): 11/14/17 - 11/14/17 [facility] [address] [facility], [address] [place], [place] [address] [phone] Discharge Disposition: Home or Self Care Attending [...]
[2018-06-04] MEDS ORDERED: VANCOMYCIN 1GM/NS 250 ML 250 ML ONE (06:17)
[2018-06-04] MEDS ORDERED: MUPIROCIN 2% OINT 22 GM TUBE ONE (06:25)
[2018-06-04] MEDS ORDERED: BACITRACIN 50,000 UNIT VIAL ONE (06:25)
[2018-06-04] MEDS ORDERED: TRANEXAMIC ACID 1,000 MG/10 ML ML ONE (06:25)
[2018-06-04] MEDS ORDERED: DEXTROSE 5% 250ML 250 ML IV ONE (06:44)
[2018-06-04] MEDS ORDERED: CELECOXIB 200 MG CAP ONE (06:56)
[2018-06-04] MEDS ORDERED: DEXAMETHASONE SOD PHOS 10 MG/1 ML VIAL ONE (06:56)
[2018-06-04] MEDS ORDERED: GABAPENTIN 300 MG CAP ONE (06:56)
[2018-06-04] MEDS ORDERED: ZOLPIDEM TARTRATE 5 MG TAB PO PRN (09:00)
[2018-06-04] MEDS ORDERED: ACETAMINOPHEN 650 MG SUPP PR PRN (09:00)
[2018-06-04] MEDS ORDERED: PROMETHAZINE HCL (IM) 25 MG/ML VIAL INJ PRN (09:00)
[2018-06-04] MEDS ORDERED: CELECOXIB 100 MG CAP PO SCH (09:00)
[2018-06-04] MEDS ORDERED: DOCUSATE SODIUM 100 MG CAP PO PRN (09:00)
[2018-06-04] MEDS ORDERED: DIPHENHYDRAMINE HCL INJ 50 MG/ML VIAL IM/IV PRN (09:00)
[2018-06-04] MEDS ORDERED: MORPHINE SULFATE INJ 4 MG/ML INJ ONE (09:27)
--- OUTSIDE RECORDS SUMMARY | 2018-06-04 09:28 | XMS REPORT | Clinical Summary ---
Author Author [facility] Organization [facility] Address Unknown Phone Unavailable Care Team Providers Care Actuarial Mathematician Name Role Phone Emiliano Lee MD PCP [...] more information, linus e contact: Lio Santana [address] [place], [place] [address] [place] [address]
[2018-06-04 09:53] VITALS: BP 137/82
[2018-06-04] MEDS: KETOROLAC TROMETHAMINE 30 MG/ML VIAL IV PRN ×2 (10:08→21:10)
[2018-06-04] MEDS: VANCOMYCIN 1GM/NS 250 ML 250 ML IV SCH ×2 (10:08→21:10)
[2018-06-04 10:31] VITALS: BP 137/82
[2018-06-04] MEDS ORDERED: ALPRAZOLAM 1 MG TAB PO PRN (11:15)
--- NOTE | 2018-06-04 11:20 | Diagnostic Imaging Report ---
PROCEDURE: X-RAY LEFT KNEE, ONE OR TWO VIEWS COMPARISON: None. INDICATIONS:POST KNEE SURGERY FINDINGS: See conclusion. CONCLUSION: Status post total left knee replacement with surrounding soft tissue swelling, air and ventura consistent with recent surgery. No acute fractures. Adiel Kirby D.O. Dictated by: Adiel Kirby D.O. on 06/04/2018 at 11:30 Electronically approved by: Adiel Kirby D.O. on 06/04/2018 at 11:30
[2018-06-04] MEDS: ACETAMINOPHEN 1000 MG/100 ML IV SCH ×2 (12:14→17:45)
[2018-06-04 12:20] VITALS: BP 143/74
[2018-06-04] MEDS ORDERED: LIDOCAINE HCL 2% LOCAL INJ 5 ML SDV VIAL INJ ONE (14:15)
[2018-06-04] MEDS ORDERED: EYE LUBRICANT OPTH OINT 3.5GM TUBE OP ONE (14:15)
[2018-06-04] MEDS ORDERED: SEVOFLURANE INHAL SOLN 250 ML PEN BTL ONE (14:15)
[2018-06-04] MEDS ORDERED: ONDANSETRON HCL INJ 2 MG/ML VIAL ONE (14:15)
[2018-06-04] MEDS ORDERED: PROPOFOL IV EMULSION 10 MG/ML 20 ML VIAL ONE (14:15)
[2018-06-04] MEDS ORDERED: DEXAMETHASONE SOD PHOS INJ 4 MG/ML VIAL ONE (14:15)
[2018-06-04] MEDS ORDERED: ROPIVACAINE 0.5% 5 MG/ML 30 ML SDV ONE (15:04)
[2018-06-04] MEDS ORDERED: LIDOCAINE 2%/ EPINEPHRINE 20ML MDV ONE (15:04)
[2018-06-04] MEDS ORDERED: FENTANYL CITRATE/PF 100MCG/2 ML INJ ONE (15:10)
[2018-06-04] MEDS ORDERED: MORPHINE SULFATE INJ 10 MG/ML ONE (15:10)
[2018-06-04] MEDS ORDERED: MIDAZOLAM HCL 2 MG/2 ML VIAL ONE (15:10)
[2018-06-04 16:14] VITALS: BP 163/72
[2018-06-04] MEDS ORDERED: NON-FORMULARY MEDICATION (Ramipril 10 MG) PO SCH (17:00)
[2018-06-04] MEDS ORDERED: METFORMIN HCL 500 MG PO SCH (17:00)
[2018-06-04] MEDS ORDERED: IRON-VITAMIN-MINERAL CAPSULE PO SCH (17:00)
[2018-06-04] MEDS: SODIUM CHLORIDE 0.9% 1000ML 1,000 ML IV SCH (17:20)
[2018-06-04] MEDS: ASPIRIN 325 MG TAB PO SCH (17:45)
[2018-06-04] MEDS: SUCRALFATE 1 GM TAB PO SCH (18:01)
[2018-06-04] MEDS: RAMIPRIL 5 MG CAP PO SCH (18:01)
[2018-06-04] MEDS: PANTOPRAZOLE SOD 40 MG TABEC PO SCH (18:01)
[2018-06-04] MEDS: METFORMIN HCL 500 MG TAB CR PO SCH (18:01)
[2018-06-04] MEDS: CELECOXIB 200 MG CAP PO SCH (18:01)
[2018-06-04] MEDS: GLIMEPIRIDE 2 MG TAB PO SCH (18:01)
[2018-06-04] MEDS: IRON-VITAMIN-MINERAL CAPSULE PO SCH (18:01)
[2018-06-04 20:00] VITALS: BP 166/75
[2018-06-04 20:45] VITALS: BP 166/75
[2018-06-04] MEDS ORDERED: TAMSULOSIN HCL 0.4 MG CAP PO SCH (21:00)
[2018-06-04] MEDS ORDERED: SIMVASTATIN 20 MG TAB PO SCH (21:00)
[2018-06-04] MEDS ORDERED: SERTRALINE HCL 50 MG TAB PO SCH (21:00)
[2018-06-04] MEDS: ONDANSETRON HCL INJ 2 MG/ML VIAL IV PRN (22:52)
[2018-06-04] MEDS: HYDROCODONE/APAP 5MG-325MG TAB PO PRN (22:53)
[2018-06-05] VITALS: BP 160/69
[2018-06-05] MEDS: ACETAMINOPHEN 1000 MG/100 ML IV SCH ×2 (00:53→06:19)
[2018-06-05 04:00] VITALS: BP 151/67
[2018-06-05] MEDS: SODIUM CHLORIDE 0.9% 1000ML 1,000 ML IV SCH (04:53)
[2018-06-05 05:27] LABS: HEMATOCRIT 36.9 % (38.2-49.6); HEMOGLOBIN 11.8 g/dL (14.0-18.0)
[2018-06-05] MEDS: RAMIPRIL 5 MG CAP PO SCH (08:45)
[2018-06-05] MEDS: SUCRALFATE 1 GM TAB PO SCH (08:45)
[2018-06-05] MEDS: ASPIRIN 325 MG TAB PO SCH (08:45)
[2018-06-05] MEDS: GLIMEPIRIDE 2 MG TAB PO SCH (08:45)
[2018-06-05] MEDS: METFORMIN HCL 500 MG TAB CR PO SCH (08:45)
[2018-06-05] MEDS: IRON-VITAMIN-MINERAL CAPSULE PO SCH (08:45)
[2018-06-05] MEDS: CELECOXIB 200 MG CAP PO SCH (08:45)
[2018-06-05 08:46] VITALS: BP 131/60
[2018-06-05] MEDS: PANTOPRAZOLE SOD 40 MG TABEC PO SCH (08:46)
[2018-06-05] MEDS: HYDROCODONE/APAP 7.5MG-325MG 1 EA TAB PO PRN ×2 (08:49→13:12)
[2018-06-05] MEDS ORDERED: CLOPIDOGREL BISULFATE 75 MG TAB PO SCH (09:00)
[2018-06-05] MEDS ORDERED: FUROSEMIDE 40 MG TAB PO SCH (09:00)
[2018-06-05] MEDS ORDERED: FUROSEMIDE 20 MG TAB PO SCH (09:00)
[2018-06-05] MEDS ORDERED: POTASSIUM CHLORIDE 20 MEQ TAB CR PO SCH (09:00)
[2018-06-05] MEDS ORDERED: ACETAMINOPHEN 1000 MG/100 ML IV PRN (09:00)
[2018-06-05] MEDS ORDERED: ALLOPURINOL 300 MG TAB PO SCH (09:00)
[2018-06-05] MEDS ORDERED: MULTIVITAMINS/MINERALS TAB PO SCH (09:00)
[2018-06-05] MEDS ORDERED: METOPROLOL SUCCINATE 50 MG TAB XL PO SCH (09:00)
[2018-06-05 10:39] VITALS: BP 131/60
[2018-06-05] MEDS: ONDANSETRON HCL INJ 2 MG/ML VIAL IV PRN (11:37)
[2018-06-05] MEDS: KETOROLAC TROMETHAMINE 30 MG/ML VIAL IV PRN (11:54)
[2018-06-05 12:39] VITALS: BP 143/65
[2018-06-05] MEDS ORDERED: NORCO 10-325 T1 EACH PO (15:13)
[2018-06-05 16:09] VITALS: BP 173/82
[2018-06-05] MEDS: HYDROCODONE/APAP 5MG-325MG TAB PO PRN (16:30)
[2018-06-05] MEDS ORDERED: LIDOCAINE 2%/ EPINEPHRINE 20ML MDV IV ONE (16:57)
[2018-06-05] MEDS ORDERED: ROPIVACAINE 0.5% 5 MG/ML 30 ML SDV INJ ONE (16:57)
--- NOTE | 2018-06-06 09:44 | Operative Report ---
DATE OF PROCEDURE: June 04, 2018 LOCKSTITCH FRONT MAKER: Jono Wiggins PA-C The patient was brought to the operating room for induction of anesthesia. Throughout this case, my PA's assistance was necessary for retraction of soft tissue and positioning of the extremity. This allows for efficient and technically successful execution of the operation and is considered medically necessary. PREOPERATIVE DIAGNOSIS: Osteoarthritis, left knee. POSTOPERATIVE DIAGNOSIS: Osteoarthritis, left knee. PROCEDURE: Left total knee arthroplasty *added complexity secondary to chronic neglected deformity. INDICATIONS: The patient is a 68-year-old gentleman with a long history of bilateral knee pain. At present, he feels the symptoms are worse on the left than the right. The patient has become wheelchair-bound. He has a contracted knee secondary to advanced arthritis. He has tethered quadriceps. He has a long history of venous stasis with open ulcerations in his lower extremities. This has prevented him from seeking more timely intervention. He has recently switched wound care facilities and his wounds have significantly healed. He would like to proceed with a left knee replacement. He plans to have his right knee done once he gets over the left side. The added challenges due to his body mass index and limited mobility have been explained. The added risks for infection have been explained. He states he understands and wishes to proceed. DESCRIPTION OF PROCEDURE: The patient was brought to the operating room and placed under general anesthetic. He received prophylactic antibiotics, a regional block and tranexamic acid in the holding area. His left lower extremity was prepped and draped in a sterile manner. A preoperative time out was performed. The extremity was exsanguinated, and a proximal tourniquet was inflated to 350 mmHg. An anterior incision was made over the left knee. A medial parapatellar arthrotomy was performed. A large amount of interarticular synovitis was encountered. A subtotal synovectomy was performed. Soft-tissue releases were performed to bring the knee up into flexion with the patella everted. Range of motion was very challenging. His quadriceps were extremely tight. Preoperatively, he did not have more than 90 degrees of flexion. Intraoperatively, this seemed to be more likely to be 75 degrees. There was severe varus deformity with loss of the medial bone. The anterior cruciate ligament was chronically deficient. The posterior cruciate ligament was sacrificed. A Dickerson and Nephew posterior stabilized Legion knee system was used throughout the case. A proximal tibial guide was used to resect the tibia. Again, exposure was challenging. The tibial baseplate was a size number 4. The central fin punch was impacted, and attention was directed towards the distal femur. An intramedullary cutting guide was used to resect the distal femur in 5 degrees of valgus and rotation referencing off of a combination of landmarks including Washoe's line, the epicondylar axis and the posterior condyles. The femoral component was a size number 5. The anterior and posterior cuts were made. The notch cut was made. The notch was cleared with rongeur forceps. A trial reduction was performed. A 9 mm posterior stabilized tibial insert was felt to provide appropriate soft-tissue balancing in flexion and extension. The patella was resurfaced with a 32 mm x 7.5 mm patellar button. The thickness was checked before and after and was right at 25 mm. Patellar tracking was noted to be concentric. The trial implants were removed. A 100 mL premixed pericapsular ROSE injection was placed into the surrounding soft tissue. The knee was thoroughly irrigated with a shower-tip pulsatile lavage. The components were cemented into place using a single mix of high-viscosity Simplex cement pre-loaded with antibiotics. Care was taken to remove extravasated cement. The wound was further irrigated with the pulsatile lavage while the cement cured. The arthrotomy was then carefully closed with interrupted number 1 Ethibond. The knee was put through flexion and extension to ensure a secure closure. The skin was closed with subcuticular Vicryl and ventura. A sterile Aquacel bandage was applied. The patient was extubated and transported to the recovery room in stable condition. Blood loss was minimal. All needle and sponge counts were correct. Job#: [id number]
== END 2018-06-05 16:58 | disposition home health service (06) ==
LOC: OR 05:58 → PACU V 08:56 → MED/SURG 09:42
PROVIDERS: ADMIT Specialist; ATTEND Specialist
DX: M17.12 Unilateral primary osteoarthritis, left knee (principal); K21.9 Gastro-esophageal reflux disease without esophagitis; J45.909 Unspecified asthma, uncomplicated; I10 Essential (primary) hypertension; E78.00 Pure hypercholesterolemia, unspecified; M10.9 Gout, unspecified; L97.529 Non-pressure chronic ulcer of other part of left foot with unspecified severity; L97.519 Non-pressure chronic ulcer of other part of right foot with unspecified severity; Z79.84 Long term (current) use of oral hypoglycemic drugs; E66.01 Morbid (severe) obesity due to excess calories; I25.10 Atherosclerotic heart disease of native coronary artery without angina pectoris; Z95.5 Presence of coronary angioplasty implant and graft; E11.42 Type 2 diabetes mellitus with diabetic polyneuropathy; D64.9 Anemia, unspecified; Z68.37 Body mass index [BMI] 37.0-37.9, adult; N40.0 Benign prostatic hyperplasia without lower urinary tract symptoms
CPT/HCPCS: 27447; 36415 ×3; 71046; 73560; 80048; 82948 ×2; 85014; 85018; 85025; 86850; 86870; 86880; 86900; 86905; 86920; 86922; 93005; 97110; 97116 ×2; 97139; 97161; 97530 ×2; 99001; C1713; G0378 ×2; G8978; G8979; J0131 ×2; J0171; J1100 ×2; J1885 ×2; J2001 ×3; J2250; J2270 ×2; J2405 ×2; J2704; J2795 ×2; J3370; J7070; S0164 ×2

== ENCOUNTER 2018-07-25 13:00 | Outpatient (RCR) | payer MEDICARE ==
[~2018-07-25 13:00] MED LIST changes: +NORCO 10-325 T1 EACH PO
== END 2018-07-26 ==
LOC: PT 13:00
PROVIDERS: ATTEND Specialist
DX: Z96.652 Presence of left artificial knee joint (principal); Z47.1 Aftercare following joint replacement surgery; M62.81 Muscle weakness (generalized); M25.562 Pain in left knee; M25.662 Stiffness of left knee, not elsewhere classified

== ENCOUNTER 2018-08-06 12:03 | Outpatient (RCR) | payer MEDICARE ==
[~2018-08-06 12:03] MED LIST changes: +LIDOCAINE/PRILOCAINE 2.5-2.5% KIT ONE; +MINERAL OIL/PETROLAT/GLYCERI 6OZ BTL ONE; +MUPIROCIN 2% OINT 22 GM TUBE ONE
[2018-08-06] MEDS ORDERED: MUPIROCIN 2% OINT 22 GM TUBE ONE (18:46)
[2018-08-06] MEDS ORDERED: MINERAL OIL/PETROLAT/GLYCERI 6OZ BTL ONE (18:46)
== END 2018-08-23 ==
LOC: WCC 12:03
PROVIDERS: ATTEND Plastic Surgery
DX: E11.59 Type 2 diabetes mellitus with other circulatory complications (principal); I97.821 Postprocedural cerebrovascular infarction following other surgery; I87.332 Chronic venous hypertension (idiopathic) with ulcer and inflammation of left lower extremity; L97.421 Non-pressure chronic ulcer of left heel and midfoot limited to breakdown of skin; I83.12 Varicose veins of left lower extremity with inflammation; I83.11 Varicose veins of right lower extremity with inflammation; I87.2 Venous insufficiency (chronic) (peripheral); I89.0 Lymphedema, not elsewhere classified; L60.2 Onychogryphosis; M10.9 Gout, unspecified; R60.0 Localized edema; I10 Essential (primary) hypertension; E78.00 Pure hypercholesterolemia, unspecified

== ENCOUNTER → 2018-08-23 | Outpatient (RCR) | payer MEDICARE ==
[~2018-08-23] MED LIST changes: -LIDOCAINE/PRILOCAINE 2.5-2.5% KIT ONE; -MINERAL OIL/PETROLAT/GLYCERI 6OZ BTL ONE; -MUPIROCIN 2% OINT 22 GM TUBE ONE
== END ==
LOC: PT 07-27 15:11
PROVIDERS: ATTEND Specialist
DX: Z96.652 Presence of left artificial knee joint (principal); Z47.1 Aftercare following joint replacement surgery; M17.0 Bilateral primary osteoarthritis of knee; M25.562 Pain in left knee; M25.662 Stiffness of left knee, not elsewhere classified; M62.81 Muscle weakness (generalized)
CPT/HCPCS: 97139

== ENCOUNTER 2018-09-03 11:53 | Outpatient (RCR) | payer MEDICARE | END 2018-09-23 | LOC: WCC 11:53 | PROVIDERS: ATTEND Plastic Surgery | DX: E11.59 Type 2 diabetes mellitus with other circulatory complications (principal); E11.621 Type 2 diabetes mellitus with foot ulcer; L97.511 Non-pressure chronic ulcer of other part of right foot limited to breakdown of skin; E78.00 Pure hypercholesterolemia, unspecified; I10 Essential (primary) hypertension; I83.11 Varicose veins of right lower extremity with inflammation; I83.12 Varicose veins of left lower extremity with inflammation; I87.2 Venous insufficiency (chronic) (peripheral); I87.311 Chronic venous hypertension (idiopathic) with ulcer of right lower extremity; L97.811 Non-pressure chronic ulcer of other part of right lower leg limited to breakdown of skin; I87.312 Chronic venous hypertension (idiopathic) with ulcer of left lower extremity; L97.821 Non-pressure chronic ulcer of other part of left lower leg limited to breakdown of skin; I87.331 Chronic venous hypertension (idiopathic) with ulcer and inflammation of right lower extremity; L97.212 Non-pressure chronic ulcer of right calf with fat layer exposed; L97.812 Non-pressure chronic ulcer of other part of right lower leg with fat layer exposed; I87.332 Chronic venous hypertension (idiopathic) with ulcer and inflammation of left lower extremity; L97.222 Non-pressure chronic ulcer of left calf with fat layer exposed; L97.421 Non-pressure chronic ulcer of left heel and midfoot limited to breakdown of skin; L97.822 Non-pressure chronic ulcer of other part of left lower leg with fat layer exposed; I89.0 Lymphedema, not elsewhere classified; L60.2 Onychogryphosis; L60.8 Other nail disorders; M10.9 Gout, unspecified; R60.0 Localized edema; S80.821A Blister (nonthermal), right lower leg, initial encounter; S80.822A Blister (nonthermal), left lower leg, initial encounter; Z16.35 Resistance to multiple antimicrobial drugs ==

== ENCOUNTER 2018-10-22 10:39 | Outpatient (RCR) | payer MEDICARE ==
[2018-10-22] MEDS ORDERED: MINERAL OIL/PETROLAT/GLYCERI 6OZ BTL ONE (18:12)
[2018-10-22] MEDS ORDERED: MUPIROCIN 2% OINT 22 GM TUBE ONE (18:12)
== END 2018-10-23 ==
LOC: WCC 10:39
PROVIDERS: ATTEND Plastic Surgery
DX: L97.819 Non-pressure chronic ulcer of other part of right lower leg with unspecified severity (principal); E11.59 Type 2 diabetes mellitus with other circulatory complications; L97.829 Non-pressure chronic ulcer of other part of left lower leg with unspecified severity; L60.2 Onychogryphosis; I87.312 Chronic venous hypertension (idiopathic) with ulcer of left lower extremity; I87.331 Chronic venous hypertension (idiopathic) with ulcer and inflammation of right lower extremity; I87.311 Chronic venous hypertension (idiopathic) with ulcer of right lower extremity; I87.2 Venous insufficiency (chronic) (peripheral); I83.12 Varicose veins of left lower extremity with inflammation; I83.11 Varicose veins of right lower extremity with inflammation; I89.0 Lymphedema, not elsewhere classified; R60.0 Localized edema; I10 Essential (primary) hypertension; M10.9 Gout, unspecified; E78.00 Pure hypercholesterolemia, unspecified

== ENCOUNTER 2018-12-31 15:42 | Emergency (ER) | payer MEDICARE ==
[~2018-12-31] VITALS: Ht 167.6 cm; Wt 106.1 kg
--- OUTSIDE RECORDS SUMMARY | 2018-12-31 15:47 | XMS REPORT | Continuity of Care Document ---
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 Name Role Phone Register My Info Information [employer] Unavailable Unavailable Problems Problem Status Onset Date Classification Date Reported Comments Source Chronic sinusitis, unspecified 05/24/2018 08/18/2018 [facility] FESS Active 01/15/2018 [facility] R93.0 Active 11/30/2017 [facility] Pain in left hip 09/27/2017 12/26/2017 [facility] [place] Urgency of urination 07/28/2017 10/30/2017 [facility] UNK Active 06/27/2017 [facility] 924.9 - CONTUSION NOS Active 06/07/2013 [facility] [place] CHD (CORONARY HEART DISEASE)/ BP (HIGH B Active 11/30/2012 [facility] FALL Active 06/08/2012 [facility] Acid reflux Resolved Problem 12/07/2012 [facility] [place] ADD Resolved Problem 12/07/2012 [facility] [place] Anxiety Resolved Problem 12/07/2012 [facility] [place] Arthritis Resolved Problem 12/07/2012 [facility] [place],[facility] Chronic pain Resolved Problem 12/07/2012 [facility] [place],[facility] Gout Resolved Problem 12/07/2012 [facility] [place],[facility] Heart attack Resolved Problem 12/07/2012 [facility] [place],[facility] Hyperlipidemia Resolved Problem 12/07/2012 [facility] [place],[facility] Hypertension Resolved Problem 12/07/2012 [facility] [place], [facility] Insomnia Resolved Problem 12/07/2012 [facility] [place] Acid reflux Active Problem 08/18/2018 [facility] [place], [facility], [facility] [place] ADD Resolved Problem 08/18/2018 [facility] [place], [facility], [facility] [place] Anxiety Active Problem 08/18/2018 [facility] [place], [facility] [place] Arthritis Active Problem 08/18/2018 [facility] [place], [facility] [place] Chronic pain Active Problem 08/18/2018 [facility] [place], [facility] [place] Depression Active Problem 08/18/2018 [facility] [place], [facility] [place] Diabetes mellitus Active Problem 08/18/2018 [facility] [place], [facility] [place] Gout Active Problem 08/18/2018 [facility] [place], [facility] [place] Heart attack Resolved Problem 08/18/2018 [facility] [place], [facility] [place] Hyperlipidemia Active Problem 08/18/2018 [facility] [place], [facility] [place] Hypertension Active Problem 08/18/2018 [facility] [place], [facility] [place] Insomnia Resolved Problem 08/18/2018 [facility] [place], [facility] [place] Benign prostatic hyperplasia with lower urinary tract symptoms 10/30/2017 [facility] Frequency of micturition 10/30/2017 [facility] Essential hypertension 10/30/2017 [facility] Atherosclerotic heart disease of [place] coronary artery without angina pectoris 10/30/2017 [facility] Old myocardial infarction 10/30/2017 [facility] Type 2 diabetes mellitus without complications 10/30/2017 [facility] Pure hypercholesterolemia, unspecified 10/30/2017 [facility] Personal history of Methicillin resistant Staphylococcus aureus infection 10/30/2017 [facility] 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 10/30/2017 [facility] long-term use of anticoagulants 10/30/2017 [facility] Presence of aortocoronary bypass graft 10/30/2017 [facility] Gout, unspecified 10/30/2017 [facility] Chest pain, unspecified 11/03/2017 [facility] [place] Medications Medication Details Route Status Patient Instructions Ordering Provider Order Date Source Furosemide 20 MG Oral Tablet 20 mg=1 tab, PO, Daily, # 30 tab, 0 Refill(s) Active 01/29/2018 [facility] lidocaine (ANES) Route: IV, Drug form: INJ, ONCE, Stop date: 07/24/17 13:14:00 [employer]PRE[employer] Inactive 07/24/2017 [facility] propofol (ANES) Route: IV, Drug form: INJ, ONCE, Stop date: 07/24/17 13:14:00 [employer]ERIAL PHOTOGRAPH INTERPRETER Inactive 07/24/2017 [facility] fentaNYL (ANES) Route: IV, Drug form: INJ, ONCE, Stop date: 07/24/17 13:14:00 AERIAL PHOTOGRAPH INTERPRETER Inactive 07/24/2017 [facility] metoclopramide (ANES) Route: IV, Drug form: INJ, ONCE, Stop date: 07/24/17 13:14:00 AERIAL PHOTOGRAPH INTERPRETER Inactive 07/24/2017 [facility] Amidate (ANES) Route: IV, Drug form: INJ, ONCE, Stop date: 07/24/17 13:14:00 AERIAL PHOTOGRAPH INTERPRETER Inactive 07/24/2017 [facility] ondansetron (ANES) Route: IV, Drug form: INJ, ONCE, Stop date: 07/24/17 13:14:00 AERIAL PHOTOGRAPH INTERPRETER Inactive 07/24/2017 [facility] midazolam (ANES) Route: IV, Drug form: SOLN, ONCE, Stop date: 07/24/17 13:14:00 AERIAL PHOTOGRAPH INTERPRETER Inactive 07/24/2017 [facility] sodium citrate (ANES) Route: PO, Drug Form: INJ, ONCE, Stop date: 07/24/17 13:14:00 AERIAL PHOTOGRAPH INTERPRETER Inactive 07/24/2017 [facility] ciprofloxacin (ANES) Route: IV, Drug form: INJ, ONCE, Stop date: 07/24/17 13:14:00 AERIAL PHOTOGRAPH INTERPRETER Inactive 07/24/2017 [facility] famotidine (ANES) Route: IV, Drug form: INJ, ONCE, Stop date: 07/24/17 13:14:00 AERIAL PHOTOGRAPH INTERPRETER Inactive 07/24/2017 [facility] Lactated Ringers Injection IV (ANES) 1000 mL Route: IV, Total Volume: 1,000, Start date: 07/24/17 12:28:00 AERIAL PHOTOGRAPH INTERPRETER, Stop date: 07/24/17 13:28:00 AERIAL PHOTOGRAPH INTERPRETER Inactive 07/24/2017 [facility] Ciprofloxacin 500 MG Oral Tablet [Cipro] 500 mg=1 tab, PO, Q12H, for UTI, X 3 day, # 6 tab, 0 Refill(s) No Longer Active 07/24/2017 [facility] Calcium Chloride 0.0014 MEQ/ML / Potassium Chloride 0.004 MEQ/ML / Sodium Chloride 0.103 MEQ/ML / Sodium Lactate 0.028 MEQ/ML Injectable Solution 1,000 mL, Rate: 25 ml/hr, Infuse over: 40 hr, Route: IV, Dosing Weight 115 kg, Total Volume: 1,000, Start date: 07/24/17 11:53:00 AERIAL PHOTOGRAPH INTERPRETER, Duration: 30 day, Stop date: 08/23/17 11:52:00 AERIAL PHOTOGRAPH INTERPRETER, 2.35, m2 Inactive 07/24/2017 [facility] Sodium Chloride 0.9% IV 1000 mL 1,000 mL, Rate: 25 ml/hr, Infuse over: 40 hr, Route: IV, Dosing Weight 115 kg, Total Volume: 1,000, Start date: 07/24/17 11:53:00 AERIAL PHOTOGRAPH INTERPRETER, Duration: 30 day, Stop date: 08/23/17 11:52:00 AERIAL PHOTOGRAPH INTERPRETER, 2.35, m2 Inactive 07/24/2017 [facility] Botulinum Toxin Type A 200 unit, Route: InFILtration(local), Drug form: INJ, ONCE, Dosing Weight 115, kg, Start date: 07/24/17 11:44:00 AERIAL PHOTOGRAPH INTERPRETER, Stop date: 07/24/17 11:44:00 CSTNotes: "TO BE RECONSTITUTED AND ADMINISTERED ON LY BY A PHYSICIAN" Reconstitute with preservative free NS only. Stability=4 hours after reconstitution. (Same As: Botox) WASTE: F/P - Red; E -Red Inactive 07/24/2017 [facility] Botulinum Toxin Type A 100 unit, Route: SUB-Q, Drug form: INJ, ONCE, Dosing Weight 115, kg, Start date: 07/21/17 15:27:00 AERIAL PHOTOGRAPH INTERPRETER, Stop date: 07/21/17 15:27:00 CSTNotes: "TO BE RECONSTITUTED AND ADMINISTERED ONLY BY A PHYSICIAN" Reconstitute with preservative free NS only. Stability=4 hours after reconstitution. (Same As: Botox) WASTE: F/P - Red; E -Red No Longer Active 07/21/2017 [facility] ONAbotulinumtoxinA 100 unit, Route: INJ, Drug form: INJ, ONCALL, Start date: 07/12/17 6:00:00 AERIAL PHOTOGRAPH INTERPRETER, Duration: 1 doses or timesNotes: "TO BE RECONSTITUTED AND ADMINISTERED ONLY BY A PHYSICIAN" Reconstitute with pr eservative free NS only. Stability=4 hours after reconstitution. (Same As: Botox) WASTE: F/P - Red; E -Red No Longer Active 07/12/2017 [facility] rimabotulinumtoxinB Route: SUB-Q, ONCE, Dosing Weight 115, kg, Start date: 07/10/17 13:55:00 AERIAL PHOTOGRAPH INTERPRETER, Stop date: 07/10/17 13:55:00 AERIAL PHOTOGRAPH INTERPRETER No Longer Active 07/10/2017 [facility] One-A-Day Men's Health Formula oral tablet 1 tab, PO, BID, 0 Refill(s) Active 07/04/2017 [facility] Ferrous fumarate 324 MG Oral Tablet [Ferrocite] 324 mg=1 tab, PO, BID, 0 Refill(s) Active 07/04/2017 [facility] tamsulosin 0.4 mg oral capsule 0.4 mg=1 cap, PO, Daily, 0 Refill(s) Active 07/04/2017 [facility] sucralfate 1 g oral tablet 1 gm=1 tab, PO, BID, 0 Refill(s) Active 07/04/2017 [facility] sertraline 50 mg oral tablet 50 mg=1 tab, PO, Bedtime, 0 Refill(s) Active 07/04/2017 [facility] ramipril 10 mg oral capsule 10 mg=1 cap, PO, Daily, 0 Refill(s) Active 07/04/2017 [facility] pantoprazole 40 mg oral enteric coated tablet 40 mg=1 tab, PO, BID, 0 Refill(s) Active 07/04/2017 [facility] Metformin hydrochloride 500 MG Oral Tablet 500 mg=1 tab, PO, BID, 0 Refill(s) Active 07/04/2017 [facility] potassium chloride 20 mEq oral tablet, extended release 20 mEq=1 tab, PO, Daily, 0 Refill(s) Active 07/04/2017 [facility] metoprolol 50 mg oral tablet, extended release 50 mg=1 tab, PO, Daily, 0 Refill(s) Active 07/04/2017 [facility] lovastatin 40 mg oral tablet 40 mg=1 tab, PO, Bedtime, 0 Refill(s) Active 07/04/2017 [facility] glimepiride 1 mg oral tablet 1 mg=1 tab, PO, Daily, 0 Refill(s) Active 07/04/2017 [facility] Alprazolam 1 MG Oral Tablet 1 mg=1 tab, PO, PRN, 0 Refill(s) Active 07/04/2017 [facility] Allopurinol 300 mg, PO, Daily, 0 Refill(s) Active 07/03/2017 [facility] clopidogrel 75 MG Oral Tablet [Plavix] 75 mg=1 tab, PO, Daily, 0 Refill(s) Active 07/03/2017 [facility] Methadone See Instructions, 10 mg PO; 3 tablets in AM; 1 in PM, 0 Refill(s) Active 07/03/2017 [facility] clindamycin 150 mg oral capsule 300 mg, 2 cap, PO, Q6H, 80 cap, Substitution Allowed, CAP PO Active [place] 06/08/2012 [facility] Allergies, Adverse Reactions, Alerts No Known Medication Allergies Immunizations No Data Provided for This Section Results Order Name Results Value Reference Range Date Interpretation Comments Source ELECTROLYTES CO2 30 24 - 32 01/29/2018 [facility] ELECTROLYTES Chloride Lvl 105 95 - 109 01/29/2018 [facility] ELECTROLYTES Calcium Lvl 9.5 8.5 - 10.5 01/29/2018 [facility] ELECTROLYTES eGFR 66 01/29/2018 Result Comment: The eGFR is calculated using [...] should be multiplied by the estimated BMI. [facility] ELECTROLYTES Sodium Lvl 142 135 - 145 01/29/2018 [facility] ELECTROLYTES Creatinine Lvl 1.13 0.50 - 1.40 01/29/2018 [facility] ELECTROLYTES Potassium Lvl 4.9 3.5 - 5.1 01/29/2018 [facility] ELECTROLYTES BUN 21 7 - 22 01/29/2018 [facility] ELECTROLYTES Glucose Lvl 92 70 - 99 01/29/2018 [facility] ELECTROLYTES AGAP 11.9 10.0 - 20.0 01/29/2018 [facility] HEMATOLOGY PT 15.5 12.0 - 14.7 01/29/2018 [facility] HEMATOLOGY INR 1.22 0.85 - 1.17 01/29/2018 [facility] HEMATOLOGY Platelet 104 133 - 450 01/29/2018 [facility] RDW 19.9 11.5 - 14.5 01/29/2018 [facility] MCHC 32.5 32.0 - 36.0 01/29/2018 [facility] MPV 7.6 7.4 - 10.4 01/29/2018 [facility] MCH 27.4 27.0 - 31.0 01/29/2018 [facility] MCV 84.3 80.0 - 94.0 01/29/2018 [facility] Hct 28.2 42.0 - 54.0 01/29/2018 [facility] WBC 9.7 3.7 - 10.4 01/29/2018 [facility] Hgb 9.2 14.0 - 18.0 01/29/2018 [facility] RBC 3.35 4.70 - 6.10 01/29/2018 [facility] PTT 39.0 22.9 - 35.8 01/29/2018 [facility] Monocytes # 1.2 0.0 - 0.8 01/29/2018 [facility] Lymphocytes # 2.6 1.0 - 5.5 01/29/2018 [facility] Basophils # 0.1 0.0 - 0.2 01/29/2018 [facility] Eosinophils # 0.1 0.0 - 0.5 01/29/2018 [facility] Segs 59.5 45.0 - 75.0 01/29/2018 [facility] Neutrophils # 5.8 1.5 - 8.1 01/29/2018 [facility] Monocytes 12.6 2.0 - 12.0 01/29/2018 [facility] Lymphocytes 26.2 20.0 - 40.0 01/29/2018 [facility] Eosinophils 1.1 0.0 - 4.0 01/29/2018 [facility] Basophils 0.6 0.0 - 1.0 01/29/2018 [facility] SPECIAL CHEMISTRY Hgb A1C 6.3 <=5.6 % 01/29/2018 [facility] CHEM PANEL eGFR 84 07/03/2017 Result Comment: The eGFR is calculated [...] should be multiplied by the estimated BMI. [facility] CHEM PANEL Potassium Lvl 4.2 3.5 - 5.1 07/03/2017 [facility] CHEM PANEL Chloride Lvl 101 95 - 109 07/03/2017 [facility] CHEM PANEL Calcium Lvl 9.1 8.5 - 10.5 07/03/2017 [facility] CHEM PANEL CO2 28 24 - 32 07/03/2017 [facility] CHEM PANEL Glucose Lvl 142 70 - 99 07/03/2017 [facility] CHEM PANEL BUN 19 7 - 22 07/03/2017 [facility] CHEM PANEL Creatinine Lvl 0.93 0.50 - 1.40 07/03/2017 [facility] CHEM PANEL Sodium Lvl 137 135 - 145 07/03/2017 [facility] CHEM PANEL AGAP 12.2 10.0 - 20.0 07/03/2017 [facility] HEMATOLOGY Eosinophils # 0.2 0.0 - 0.5 07/03/2017 [facility] HEMATOLOGY Basophils # 0.1 0.0 - 0.2 07/03/2017 [facility] Basophils 0.5 0.0 - 1.0 07/03/2017 [facility] HEMATOLOGY Segs-Bands # 7.1 1.5 - 8.1 07/03/2017 [facility] HEMATOLOGY Monocytes # 1.4 0.0 - 0.8 07/03/2017 [facility] HEMATOLOGY Lymphocytes # 2.4 1.0 - 5.5 07/03/2017 [facility] HEMATOLOGY Eosinophils 2.2 0.0 - 4.0 07/03/2017 [facility] HEMATOLOGY Lymphocytes 21.6 20.0 - 40.0 07/03/2017 [facility] HEMATOLOGY Segs 63.2 45.0 - 75.0 07/03/2017 [facility] HEMATOLOGY Monocytes 12.5 2.0 - 12.0 07/03/2017 [facility] MPV 8.5 7.4 - 10.4 07/03/2017 [facility] HEMATOLOGY MCH 26.2 27.0 - 31.0 07/03/2017 [facility] HEMATOLOGY RDW 16.1 11.5 - 14.5 07/03/2017 [facility] HEMATOLOGY MCV 80.0 80.0 - 94.0 07/03/2017 [facility] HEMATOLOGY Platelet 178 133 - 450 07/03/2017 [facility] MCHC 32.8 32.0 - 36.0 07/03/2017 [facility] HEMATOLOGY Hgb 14.1 14.0 - 18.0 07/03/2017 [facility] HEMATOLOGY Hct 43.1 42.0 - 54.0 07/03/2017 [facility] HEMATOLOGY RBC 5.38 4.70 - 6.10 07/03/2017 [facility] HEMATOLOGY WBC 11.3 3.7 - 10.4 07/03/2017 [facility] URINE AND STOOL UA RBC 1 0 - 2 07/03/2017 [facility] URINE AND STOOL UA Color Ltyellow 07/03/2017 [facility] URINE AND STOOL UA Urobilinogen <=1.0 mg/dL 0.1 - 1.0 07/03/2017 [facility] URINE AND STOOL UA Blood Negative (07/03/17 5:00 PM) Negative 07/03/2017 [facility] URINE AND STOOL UA Bili Negative *NA* (07/03/17 5:00 PM) Negative 07/03/2017 [facility] URINE AND STOOL UA Leuk Est Negative (07/03/17 5:00 PM) Negative 07/03/2017 [facility] URINE AND STOOL UA Nitrite Negative (07/03/17 5:00 PM) Negative 07/03/2017 [facility] URINE AND STOOL UA Sq Epi Occasional /LPF Few /LPF 07/03/2017 [facility] URINE AND STOOL UA WBC <1 0 - 5 07/03/2017 [facility] URINE AND STOOL UA Turbidity Clear (07/03/17 5:00 PM) Clear 07/03/2017 [facility] URINE AND STOOL UA Spec Grav 1.014 <=1.030 07/03/2017 [facility] URINE AND STOOL UA pH 6.0 5.0 - 8.0 07/03/2017 [facility] URINE AND STOOL UA Protein Negative mg/dL Negative mg/dL 07/03/2017 [facility] URINE AND STOOL UA Glucose Negative mg/dL Negative mg/dL 07/03/2017 [facility] URINE AND STOOL UA Ketones Negative mg/dL Negative mg/dL 07/03/2017 [facility] URINALYSIS UA Color Ltyellow 06/08/2012 NA [facility] URINALYSIS UA Urobilinogen 0.1 - 1.0 06/08/2012 NA [facility] URINALYSIS UA Sq Epi None Seen 06/08/2012 [facility] URINALYSIS UA Leuk Est Negative (06/08/2012 07:46:00) Negative 06/08/2012 Normal [facility] URINALYSIS UA Turbidity Clear (06/08/2012 07:46:00) Clear 06/08/2012 Normal [facility] URINALYSIS UA Spec Grav 1.008 <=1.030 06/08/2012 Normal [facility] URINALYSIS UA pH 7.0 5.0 - 8.0 06/08/2012 Normal [facility] URINALYSIS UA Glucose Negative mg/dL *NA* (06/08/2012 07:46:00) Negative 06/08/2012 [facility] URINALYSIS UA Protein Negative mg/dL (06/08/2012 07:46:00) Negative 06/08/2012 Normal [facility] URINALYSIS UA Ketones Negative mg/dL *NA* (06/08/2012 07:46:00) Negative 06/08/2012 [facility] URINALYSIS UA Blood Negative (06/08/2012 07:46:00) Negative 06/08/2012 Normal [facility] URINALYSIS UA Bili Negative *NA* (06/08/2012 07:46:00) Negative 06/08/2012 [facility] URINALYSIS UA Nitrite Negative (06/08/2012 07:46:00) Negative 06/08/2012 Normal [facility] CHEMISTRY eGFR 80 06/08/2012 NA <sup>1</sup>Result Comment: The eGFR is calculated using the CKD-EPI formula. In most young, healthy individuals the eGFR will be >90 mL/min/1.73m2. The eGFR declines with age. An eGFR of 60-89 may be normal in some populations, particularly the elderly, for whom the CKD-EPI formula has not been extensively validated. Use of the eGFR is not recommended in the following populations:& lt;br/>
Individuals with unstable creatinine concentrations, including patients [...] should be multiplied by the estimated BMI. [facility] CHEMISTRY Calcium Lvl 8.7 8.5 - 10.5 06/08/2012 Normal [facility] CHEMISTRY Chloride Lvl 97 95 - 109 06/08/2012 Normal [facility] CHEMISTRY CO2 31 24 - 32 06/08/2012 Normal [facility] CHEMISTRY Glucose Lvl 206 70 - 99 06/08/2012 [facility] <sup>2</sup>Interpretive Data: Adult reference range values reflect the clinical guidelines
of the [place] [employer]. [facility] CHEMISTRY BUN 14 7 - 22 06/08/2012 Normal [facility] CHEMISTRY Potassium Lvl 3.8 3.5 - 5.1 06/08/2012 Normal [facility] CHEMISTRY Creatinine Lvl 1.0 0.5 - 1.4 06/08/2012 Normal [facility] CHEMISTRY Sodium Lvl 137 135 - 145 06/08/2012 Normal [facility] CHEMISTRY AGAP 12.8 10.0 - 20.0 06/08/2012 Normal [facility] HEMATOLOGY PTT 29.5 22.9 - 35.8 06/08/2012 Normal <sup>4</sup>Interpretive Data: Heparin Therapeutic Range: 57 - 92 Seconds [facility] HEMATOLOGY PT 15.4 12.0 - 14.7 06/08/2012 [facility] HEMATOLOGY INR 1.20 0.85 - 1.17 06/08/2012 [facility] <sup>3</sup>Interpretive Data: RECOMMENDED RANGES FOR PROTIME INR:
2.0-3.0 for most medical and surgical thromboembolic states.
2.5-3.5 for artificial heart valves and recurrent embolism.

INR SHOULD BE USED ONLY FOR PATIENTS ON STABLE ANTICOAGULANT THERAPY. [facility] HEMATOLOGY MPV 7.5 7.4 - 10.4 06/08/2012 Normal [facility] HEMATOLOGY MCHC 32.5 32.0 - 36.0 06/08/2012 Normal [facility] HEMATOLOGY Platelet 188 133 - 450 06/08/2012 Normal [facility] HEMATOLOGY RDW 17.6 11.5 - 14.5 06/08/2012 HI [facility] HEMATOLOGY MCV 76.7 80.0 - 94.0 06/08/2012 LOW [facility] HEMATOLOGY MCH 24.9 27.0 - 31.0 06/08/2012 [facility] HEMATOLOGY Hgb 10.5 14.0 - 18.0 06/08/2012 [facility] HEMATOLOGY Hct 32.4 42.0 - 54.0 06/08/2012 [facility] HEMATOLOGY RBC 4.22 4.70 - 6.10 06/08/2012 [facility] HEMATOLOGY WBC 17.9 3.7 - 10.4 06/08/2012 [facility] Pathology Reports No Data Provided for This Section Diagnostic Reports Report Value Date Source Sinus wo contrast CT Study: Sinus wo [...] sinuses are clear. Nasal cavity: 3 mm [id number] nasal septal deviation is present. There is [...] the right ostiomeatal complex is seen. Mild [id number]-[id number] nasal septal deviation noted, with tiny right lateralizing septal spur which minimally indents mucosa overlying the heel surface of the right inferior turbinate. There is no significant interval change as compared to the previous CT scan of the brain dated 11/14/2017. SL: [id number] 12/14/2017 [facility] Ribs unilateral DX EXAM: Ribs unilateral DX HISTORY: - right rib pain; contusion COMPARISON: Chest radiograph 11/14/2017 Right rib series IMPRESSION: There is a nondisplaced fracture of the lateral aspect of the right fifth and possibly sixth rib seen on image 6. 11/21/2017 [facility] Chest 2 views DX EXAM: Chest 2 views DX HISTORY: - R07.9 Chest pain, unspecified COMPARISON: 06/07/2013 The heart size is normal. The lungs are clear. There is no pleural effusion or pneumothorax. Partially visualized right shoulder arthroplasty. Previously seen spinal catheter has been removed. IMPRESSION: No acute abnormality. 10/24/2017 [facility] Hip 2/3 views uni w pelvis DX HISTORY: - left hip pain TECHNIQUE: AP view of the pelvis and frog-leg lateral view of the left hip. COMPARISON: None available. FINDINGS: Normal mineralization and anatomic alignment of the bones without fracture or dislocation. The joint spaces are well-maintained without evidence of effusion. Lumbar spondylosis is partially visualized. IMPRESSION: No acute osseous injury. [id number] [facility] [place] [facility] Bilateral DX EXAMINATION: Bilateral [...] is also left genu varus alignment. 05/17/2016 [facility] [place] Knee 3 Views Bilateral DX Bilateral knee [...] of both tibias on the femurs. 05/11/2015 [facility] [place] Knee 3 Views Bilateral DX BILATERAL KNEE [...] no fracture. IMPRESSION: Severe bilateral osteoarthritis. 01/28/2015 [facility] [place] Ribs bilateral BILATERAL RIB SERIES CLINICAL HISTORY: [...] 6th, 8th and possibly seventh rib. 06/07/2013 [facility] [place] Chest 2 views CHEST RADIOGRAPHY CLINICAL HISTORY: [...] on rib series study. No pneumothorax. 06/07/2013 [facility] [place] Consult[facility] Notes No Data Provided for This Section Discharge Summaries No Data Provided for This Section History and Physicals No Data Provided for This Section Vital Signs Vital Sign Value Date Comments Source Temperature Oral (F) 98.1 F 01/29/2018 [facility] Heart Rate 63 01/29/2018 [facility] Respitory Rate 18 01/29/2018 [facility] Systolic (mm Hg) 130 01/29/2018 [facility] Diastolic (mm Hg) 67 01/29/2018 [facility] BMI Calculated 37.07 01/29/2018 [facility] Weight 104.182 01/29/2018 [facility] Height 167.64 cm 01/29/2018 [facility] Systolic (mm Hg) 144 07/24/2017 [facility] Diastolic (mm Hg) 76 07/24/2017 [facility] Systolic (mm Hg) 148 07/24/2017 [facility] Diastolic (mm Hg) 68 07/24/2017 [facility] Respitory Rate 16 07/24/2017 [facility] Respitory Rate 14 07/24/2017 [facility] Systolic (mm Hg) 133 07/24/2017 [facility] Diastolic (mm Hg) 67 07/24/2017 [facility] Respitory Rate 12 07/24/2017 [facility] Heart Rate 62 07/03/2017 [facility] Temperature Oral (F) 98.0 F 07/03/2017 [facility] Weight 115 07/03/2017 [facility] BMI Calculated 40.92 07/03/2017 [facility] Height 167.64 cm 07/03/2017 [facility] Weight 109.091 12/05/2012 [facility] Height 167.64 cm 12/05/2012 [facility] Weight 110.000 06/08/2012 [facility] Height 167.64 cm 06/08/2012 [facility] Encounters Location Location Details Encounter Type Encounter Number Reason For Visit Attending Provider ADM Date DC Date Status Source [facility] Emergency [id number] [place] ASEAnabela SOUMAN 06/08/2012 06/08/2012 Active [facility] Outpatient [id number] CHD (CORONARY HEART DISEASE)/ BP (HIGH BLOOD PRESSURE) JEFFERSON AMES 12/05/2012 Active [facility] OD [id number] 924.9 - CONTUSION NOS KALYANI DOYLE 06/07/2013 06/07/2013 Active [facility] [place] [facility] [id number] Tera Gallo 01/28/2015 01/29/2015 [facility] [place] [facility] [id number] Tera Gallo 05/11/2015 05/12/2015 [facility] [place] [facility] [id number] Tera Gallo 05/17/2016 05/18/2016 [facility] [place] [facility] Day Surgery [id number] Oscar Moffett 07/24/2017 07/24/2017 [facility] Outpatient [facility] [place] [facility] [id number] Kalyani Burr 09/19/2017 09/20/2017 [facility] [place] [facility] [id number] Inez Oates 10/24/2017 10/25/2017 [facility] Outpatient Imaging - [place] [facility] [id number] Kalyani Burr 11/14/2017 11/15/2017 [facility] Out[facility] [place] [facility] [id number] Kalyani Burr 11/21/2017 11/22/2017 [facility] [place] [facility] Outpatient [id number] Valerie Doyle 12/14/2017 12/15/2017 [facility] Outpatient [id number] Valerie Doyle 01/29/2018 01/29/2018 [facility] Procedures Procedure Code Date Perfomer Comments Source Amputation great toe [id number] [facility] [place] Angiogram<sup>1</sup> [id number] approx 2003 [facility] [place] Operation<sup>2, 3</sup> [id number] tendon one side; heel spur other sideright heel spur [facility] [place] Operation<sup>4</sup> [id number] hardware removed the following week due to infection [facility] [place] Operation [id number] [facility] [place] Shoulder replacement [id number] [facility] [place] Amputation great toe [id number] [facility] Angiogram<sup>1</sup> 44049889 approx 2003 [facility] Operation<sup>2, 3</sup> 644063261 tendon one side; heel spur other sideright heel spur [facility] Operation<sup>4</sup> [id number] hardware removed the following week due to infection [facility] Operation [id number] [facility] Shoulder replacement [id number] [facility] Amputation great toe [id number] [facility] [place] Angiogram<sup>1</sup> 35691131 approx 2003 [facility] [place] Operation<sup>2, 3</sup> 598086383 tendon one side; heel spur other sideright heel spur [facility] [place] Operation<sup>4</sup> 150755315 hardware removed the following week due to infection [facility] [id number] [facility] [id number] [facility] Assessment and Plan No Data Provided for This Section Plan of Care No Data Provided for This Section Social History Social History Date Source Social History TypeResponse Substance Abuse Use: None. Alcohol Current, Frequency: 1-2 times per month. Smoking Status Never smoker; Exposure to Tobacco Smoke None; Cigarette Smoking Last 365 Days No; Reg Smoking Cessation Counseling No entered on: 07/03/17 07/03/2017 JEFRY Ron Social History TypeResponse Substance Abuse Use: None. Alcohol Current, Frequency: 1-2 times per month. Smoking Status Never smoker; Exposure to Tobacco Smoke None; Cigarette Smoking Last 365 Days No; Reg Smoking Cessation Counseling No entered on: 01/29/18 07/03/2017 [facility] Social History TypeResponse Substance Abuse Use: None. Alcohol Current, Frequency: 1-2 times per month. Smoking Status Never smoker; Exposure to Tobacco Smoke None; Cigarette Smoking Last 365 Days No; Reg Smoking Cessation Counseling No entered on: 07/03/17 07/03/2017 [facility]OB[facility]O CAPPS [place] Family History No Data Provided for This Section Advance Directives No Data Provided for This Section Functional Status No Data Provided for This Section
--- OUTSIDE RECORDS SUMMARY | 2018-12-31 15:47 | XMS REPORT | Clinical Summary ---
Author Author [facility] Address Unknown Phone Unavailable Care Team Providers Care Remelter Name Role Phone Emiliano Lee MD PCP [...] Health Maintenance Due Date Last Done Comments COLONOSCOPY SCREENING 1999 SHINGLES VACCINES (#1) 1999 65+ PNEUMOCOCCAL VACCINE 2014 (1 of 2 - PCV13) INFLUENZA VACCINE 01/24/2019 Results Not on fileafter 12/30/2017 Insurance Type Payer Benefit Subscriber ID Effective Phone Address Plan / Dates Group HMO [employer] CIGNA xxxxxxxxxxx [id number] HEALTHSPRI resent NG O MCR ADV Advance Directives Patient has advance care planning documents on file. For more information, linus e contact: Lio Santana [address] [place] [phone]
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
[2018-12-31] MEDS ORDERED: TETANUS/DIPHTHERIA TOX ADULT 0.5 ML SYR IM ONE (16:15)
--- NOTE | 2018-12-31 17:42 | Diagnostic Imaging Report ---
Exam: Left Knee Series - 3 views History: Knee pain Comparison: Left knee radiographs of 06/04/2018 Findings: 3 views of the left knee demonstrate postoperative findings of left total knee replacement in near-anatomic alignment. No acute fracture or dislocation. No evidence of hardware failure. Small suprapatellar joint effusion. Impression: Status post left total knee replacement. No acute osseous injury or evidence of hardware loosening. Signed by: Jose Angel Pryor MD on 12/31/2018 5:38 PM
--- NOTE | 2018-12-31 17:45 | Diagnostic Imaging Report ---
Exam: Left forearm Series. History: Trauma Comparison: None Findings: 2 views of the left forearm demonstrate postoperative findings of plate and screw open reduction internal fixation of the distal radius and ulna. No acute fracture or dislocation. No evidence of hardware failure. The soft tissues appear unremarkable. There are extensive degenerative changes at the first carpometacarpal joint with subluxation of the first metacarpal base, joint space narrowing, and bony proliferative changes. Impression: No acute osseous injury of the left forearm. Status post prior ORIF of distal radius and ulna. Severe degenerative changes of the thumb carpometacarpal joint. Signed by: Jose Angel Pryor MD on 12/31/2018 5:42 PM
--- NOTE | 2018-12-31 17:53 | Diagnostic Imaging Report ---
EXAMINATION: Head and face CT without contrast. HISTORY: Status post fall, head and face trauma, cheek laceration COMPARISON: None. TECHNIQUE: Multidetector axial images were obtained without contrast from the foramen magnum to the vertex and over the face. The images were reconstructed using brain and bone algorithms. Thin section brain images were reformatted into coronal and sagittal planes. Dose modulation, iterative reconstruction, and/or weight based adjustment of the mA/kV was utilized to reduce the radiation dose to as low as reasonably achievable. Head CT findings: Skull: No lytic or blastic lesions. No fractures. Parenchyma: Few scattered and mildly confluent periventricular white matter hypodensities, most likely nonspecific chronic microvascular ischemic changes. No mass, hemorrhage or CT evidence of acute vascular insult. Brain volume: Mild generalized brain volume loss. Ventricles: No hydrocephalus or displacement. Arteries: No density suggestive of thrombus. Dural sinuses: No abnormal density. Extra-axial spaces: No abnormal density. Foramen magnum: No mass, Chiari malformation, or basilar invagination. Sella: No obvious mass. Paranasal/mastoid sinuses: Imaged portions unremarkable. Face CT findings: Bones: No acute displaced fractures Facial soft tissues: Minimal left premaxillary soft tissue swelling. Orbits contents: Replaced left glands likely from prior cataract surgery Paranasal sinuses and drainage pathways: Near complete opacification with partially hypodense and calcified material of the left maxillary sinus, likely related to chronic inflammatory process, as there is thickening an scleroses with osteitis of the left maxillary sinus catalan. There is also opacification of the left maxillary ostium. Otherwise no significant arthritic changes of the paranasal sinuses. Nasal septum and nasal cavities: Is shape with right posterior-lateral left anterior/superior deviation. Anatomic variations: No significant anatomic variations. Teeth: Scattered dental cavities, multiple missing teeth. Incidental findings: Disc osteophyte complex formation, uncovertebral and facet processes results in severe canal and foraminal stenoses at C3-C4. IMPRESSION: Head CT: 1. No acute post traumatic intracranial hemorrhage. 2. Mild chronic microvascular ischemic changes. 3. Mild generalized parenchymal volume loss. Face CT: No acute facial fractures. Chronic complete opacification of the left maxillary sinus as above. Signed by: Dr. Doretha Willett M.D. on 12/31/2018 5:50 PM
== END 2018-12-31 18:28 | disposition home or self-care (01) ==
LOC: ER 15:42
DX: S01.112A Laceration without foreign body of left eyelid and periocular area, initial encounter (principal); S00.83XA Contusion of other part of head, initial encounter; S80.02XA Contusion of left knee, initial encounter; W01.0XXA Fall on same level from slipping, tripping and stumbling without subsequent striking against object, initial encounter; Y92.488 Other paved roadways as the place of occurrence of the external cause; I10 Essential (primary) hypertension; E11.9 Type 2 diabetes mellitus without complications; I25.10 Atherosclerotic heart disease of native coronary artery without angina pectoris; E78.5 Hyperlipidemia, unspecified; F32.9 Major depressive disorder, single episode, unspecified; I25.2 Old myocardial infarction
CPT/HCPCS: 12011; 70450; 70486; 90471; 90714; 99283

== ENCOUNTER 2019-01-21 11:40 | Outpatient (RCR) | payer MEDICARE ==
[~2019-01-21 11:40] MED LIST changes: +MUPIROCIN 2% OINT 22 GM TUBE ONE
[2019-01-21] MEDS ORDERED: LIDOCAINE/PRILOCAINE 2.5-2.5% KIT ONE (11:48)
[2019-01-21] MEDS ORDERED: MINERAL OIL/PETROLAT/GLYCERI 6OZ BTL ONE (11:48)
== END 2019-01-23 ==
LOC: WCC 11:40
PROVIDERS: ATTEND Plastic Surgery
DX: E11.59 Type 2 diabetes mellitus with other circulatory complications (principal); I87.312 Chronic venous hypertension (idiopathic) with ulcer of left lower extremity; I87.311 Chronic venous hypertension (idiopathic) with ulcer of right lower extremity; I87.331 Chronic venous hypertension (idiopathic) with ulcer and inflammation of right lower extremity; L97.829 Non-pressure chronic ulcer of other part of left lower leg with unspecified severity; L97.819 Non-pressure chronic ulcer of other part of right lower leg with unspecified severity; I83.12 Varicose veins of left lower extremity with inflammation; I83.11 Varicose veins of right lower extremity with inflammation; I87.2 Venous insufficiency (chronic) (peripheral); R60.0 Localized edema; I10 Essential (primary) hypertension; E78.00 Pure hypercholesterolemia, unspecified
CPT/HCPCS: 36415; 82948

== ENCOUNTER 2019-02-04 12:53 | Outpatient (RCR) | payer MEDICARE ==
[~2019-02-04 12:53] MED LIST changes: -MINERAL OIL/PETROLAT/GLYCERI 2OZ CRM ONE; -MUPIROCIN 2% OINT 22 GM TUBE ONE
== END 2019-02-23 ==
LOC: WCC 12:53
PROVIDERS: ATTEND Plastic Surgery
DX: E11.59 Type 2 diabetes mellitus with other circulatory complications (principal); I87.312 Chronic venous hypertension (idiopathic) with ulcer of left lower extremity; I87.331 Chronic venous hypertension (idiopathic) with ulcer and inflammation of right lower extremity; I87.311 Chronic venous hypertension (idiopathic) with ulcer of right lower extremity; L97.821 Non-pressure chronic ulcer of other part of left lower leg limited to breakdown of skin; L97.829 Non-pressure chronic ulcer of other part of left lower leg with unspecified severity; L97.819 Non-pressure chronic ulcer of other part of right lower leg with unspecified severity; I83.12 Varicose veins of left lower extremity with inflammation; I83.11 Varicose veins of right lower extremity with inflammation; I87.2 Venous insufficiency (chronic) (peripheral); R60.0 Localized edema; I89.0 Lymphedema, not elsewhere classified; L60.2 Onychogryphosis; M10.9 Gout, unspecified; I10 Essential (primary) hypertension; E78.00 Pure hypercholesterolemia, unspecified

== ENCOUNTER → 2019-02-04 | Outpatient (CLI) | payer MEDICARE ==
[~2019-02-04] MED LIST changes: +MINERAL OIL/PETROLAT/GLYCERI 2OZ CRM ONE
== END ==
LOC: WCC 05:00
PROVIDERS: ATTEND Plastic Surgery
DX: E11.59 Type 2 diabetes mellitus with other circulatory complications (principal); I87.331 Chronic venous hypertension (idiopathic) with ulcer and inflammation of right lower extremity; I87.312 Chronic venous hypertension (idiopathic) with ulcer of left lower extremity; L97.819 Non-pressure chronic ulcer of other part of right lower leg with unspecified severity; L97.821 Non-pressure chronic ulcer of other part of left lower leg limited to breakdown of skin; L97.829 Non-pressure chronic ulcer of other part of left lower leg with unspecified severity; L60.2 Onychogryphosis; R60.0 Localized edema; I83.11 Varicose veins of right lower extremity with inflammation; I83.12 Varicose veins of left lower extremity with inflammation; I87.2 Venous insufficiency (chronic) (peripheral); I89.0 Lymphedema, not elsewhere classified; M10.9 Gout, unspecified; I10 Essential (primary) hypertension; E78.00 Pure hypercholesterolemia, unspecified

== ENCOUNTER 2019-06-13 08:26 | Emergency (ER) | payer MEDICARE ==
[~2019-06-13] VITALS: Ht 167.6 cm; Wt 106.1 kg
[2019-06-13] MEDS ORDERED: TETANUS/DIPHTHERIA TOX ADULT 0.5 ML SYR IM ONE (08:30)
[2019-06-13] MEDS ORDERED: KETOROLAC TROMETHAMINE 30 MG/ML VIAL IM STA (09:47)
[2019-06-13] MEDS ORDERED: HYDROCODONE/APAP 7.5MG-325MG 1 EA TAB PO ONE (10:00)
[2019-06-13] MEDS ORDERED: METOPROLOL TARTRATE 50 MG TAB PO ONE (10:00)
--- NOTE | 2019-06-13 10:02 | Diagnostic Imaging Report ---
EXAMINATION: Head and cervical spine CT without contrast. HISTORY: Status post fall, hit the back of the head, trauma, head and neck pain COMPARISON: None. TECHNIQUE: Multidetector axial images were obtained without contrast from the foramen magnum to the vertex and through the cervical spine. The images were reconstructed using brain and bone algorithms. Thin section brain images were reformatted into coronal and sagittal planes. Dose modulation, iterative reconstruction, and/or weight based adjustment of the mA/kV was utilized to reduce the radiation dose to as low as reasonably achievable. HEAD CT FINDINGS: Skull/scalp: No lytic or blastic lesions. No fractures. Parenchyma: Few scattered and mildly confluent periventricular matter hypodensities, likely nonspecific chronic microvascular ischemic changes. No mass, hemorrhage or CT evidence of acute vascular insult. Brain volume: Mild generalized brain volume loss. Ventricles: No hydrocephalus or displacement. Arteries: No density suggestive of thrombus. Dural sinuses: No abnormal density. Extra-axial spaces: No abnormal density. Foramen magnum: No mass, Chiari malformation, or basilar invagination. Sella: No obvious mass. Paranasal/mastoid sinuses: Complete opacification of the partially visualized left maxillary sinus, otherwise clear. CERVICAL SPINE CT FINDINGS: Alignment:Normal alignment and lordosis. Subtle left-sided curvature. Soft tissues: Normal. Vertebrae: Age indeterminate likely chronic minimal anterior wedging of the T1 vertebral body with depression of the superior endplate and decreased vertebral body height by approximately 10%, no posterior retropulsion or associated canal stenosis. Otherwise normal height and density. No acute fracture, infection or neoplasm. Degenerative changes: C1-C2: Normal C2-C3: Normal C3-C4: Prominent disc osteophyte complex formation with small central calcified disc, bilateral uncovertebral and facet arthrosis. Moderate spinal canal and bilateral foraminal stenosis most on the left. C4-C5: Disc osteophyte, this formation, bilateral uncovertebral and facet arthrosis. Moderate foraminal stenosis worse on the right. C5-C6: Disc osteophyte formation, uncovertebral and facet arthrosis mainly of the left side. Moderate left foraminal stenosis. C6-C7: Minimal spondylosis and uncovertebral arthrosis without significant stenosis. C7-T1: Normal IMPRESSION: Head CT: 1. No acute postraumatic intracranial hemorrhage. 2. Mild chronic microvascular ischemic changes. 3. Nonspecific opacification of the left maxillary sinus which is partially visualized. Cervical spine CT: 1. No acute fractures or dislocations. 2. Chronic degenerative changes as described. 3. Minimal chronic anterior wedging of the T1 vertebral body. Note: Acute post traumatic spinal cord, vascular or ligamentous injury cannot adequately be assessed with CT. Signed by: Dr. Doretha Willett M.D. on 06/13/2019 9:59 AM
--- NOTE | 2019-06-13 10:09 | Diagnostic Imaging Report ---
EXAMINATION: FOREARM BILATERAL INDICATION: Trauma COMPARISON: Left forearm radiographs 04/15/2019 FINDINGS: Right: No acute fracture or dislocation. Alignment is anatomic. Scattered degenerative changes. Remote healed trauma at the distal radius and ulnar styloid. Left: There are postoperative findings of prior open reduction internal fixation of the distal radius and ulna with plate and threaded screw construct. Compared to the prior radiograph of 04/15/2019, there is a new cortical step-off at the most proximal ulnar screw with new associated adjacent callus formation and a small amount of bony bridging. There is associated mild lucency surrounding the most proximal ulnar screw. IMPRESSION: New cortical step-off at the left proximal ulnar screw with associated callus formation and small amount of bony bridging. Associated mild lucency surrounding the most proximal ulnar screw. This likely represents a subacute fracture in early stages of healing. Signed by: Jose Angel Pryor MD on 06/13/2019 10:05 AM
== END 2019-06-13 10:44 | disposition home or self-care (01) ==
LOC: ER 08:26
DX: S16.1XXA Strain of muscle, fascia and tendon at neck level, initial encounter (principal); S50.11XA Contusion of right forearm, initial encounter; S00.03XA Contusion of scalp, initial encounter; S00.93XA Contusion of unspecified part of head, initial encounter; M47.812 Spondylosis without myelopathy or radiculopathy, cervical region; W01.0XXA Fall on same level from slipping, tripping and stumbling without subsequent striking against object, initial encounter; Y92.009 Unspecified place in unspecified non-institutional (private) residence as the place of occurrence of the external cause; E66.9 Obesity, unspecified; Z68.37 Body mass index [BMI] 37.0-37.9, adult
CPT/HCPCS: 70450; 72125; 73090; 90471; 90714; 99283; J1885

== ENCOUNTER → 2020-08-05 | Outpatient (CLI) | payer MEDICARE | LOC: DX 10:39 | PROVIDERS: ATTEND Otolaryngology | DX: R13.13 Dysphagia, pharyngeal phase (principal); Z11.52 Encounter for screening for COVID-19 | CPT/HCPCS: 74230; 92611; U0002 ==

== ENCOUNTER → 2020-10-13 | Outpatient (CLI) | payer MEDICARE ==
[~2020-10-13] MED LIST changes: +IOPAMIDOL 300 MG/ML 15ML VIAL IT ONE; +LIDOCAINE HCL 1% LOCAL INJ 20 ML VIAL ONE
[2020-10-13 08:57] LABS: HEMOGLOBIN 13.3 g/dL (14.0-18.0)
[2020-10-13 09:17] LABS: INR 0.92
[2020-10-13 09:18] LABS: PARTIAL THROMBOPLASTIN TIME 32.5 seconds (23.8-35.5)
== END ==
LOC: DX 08:39
PROVIDERS: ATTEND Physician Assistant
DX: M47.817 Spondylosis without myelopathy or radiculopathy, lumbosacral region (principal); M43.17 Spondylolisthesis, lumbosacral region
CPT/HCPCS: 36415; 62304; 72132; 85014; 85049; 85610; 85730; J2001; Q9967

== ENCOUNTER → 2020-11-18 | Outpatient (CLI) | payer MEDICARE ==
[~2020-11-18] MED LIST changes: -IOPAMIDOL 300 MG/ML 15ML VIAL IT ONE; -LIDOCAINE HCL 1% LOCAL INJ 20 ML VIAL ONE
== END ==
LOC: US 09:43
PROVIDERS: ATTEND Family Medicine
DX: I71.4 Abdominal aortic aneurysm, without rupture (principal)
CPT/HCPCS: 76700

== ENCOUNTER → 2020-12-31 | Outpatient (CLI) | payer MEDICARE | LOC: RAD 14:34 | PROVIDERS: ATTEND Family Medicine | DX: D16.12 Benign neoplasm of short bones of left upper limb (principal) ==

== ENCOUNTER → 2021-03-05 | Day surgery (SDC) | payer BC, MEDICARE ==
[2021-03-04 11:40] LABS: ANION GAP 14.6 mmol/L (8-16); CALCIUM 9.2 mg/dL (8.4-10.2); CREATININE, SERUM 0.99 mg/dL (0.72-1.25); POTASSIUM 4.6 mmol/L (3.5-5.1)
[2021-03-04 14:10] LABS: BASOPHILS # (AUTO) 0.1 (0.0-0.1); BASOPHILS % 0.7 % (0.0-1.0); EOSINOPHILS # (AUTO) 0.3 (0.0-0.4); EOSINOPHILS % 2.8 % (0.0-6.0); HEMATOCRIT 40.3 % (38.2-49.6); HEMOGLOBIN 12.7 g/dL (14.0-18.0); LYMPHOCYTES # (AUTO) 2.8 (1.0-3.2); LYMPHOCYTES % 27.3 % (18.0-39.1); MEAN CORPUSCULAR HEMOGLOBIN 27.3 pg (28-32); MEAN CORPUSCULAR HGB CONC 31.5 g/dL (31-35); MEAN CORPUSCULAR VOLUME 86.5 fL (81-99); MONOCYTES # (AUTO) 1.4 (0.2-0.8); MONOCYTES % 13.7 % (4.4-11.3); NEUTROPHILS # (AUTO) 5.6 (2.1-6.9); NEUTROPHILS % 54.9 % (38.7-80.0); PLATELET COUNT 171 x10e3/uL (140-360); RED BLOOD COUNT 4.66 x10e6/uL (4.3-5.7); RED CELL DISTRIBUTION WIDTH 14.1 % (11.7-14.4)
[~2021-03-05] MED LIST changes: +ACETAMINOPHEN 1000 MG/100 ML 100 ML IV ONE; +ALENDRONATE SOD70 MG PO; +BUPIVACAINE HCL 0.5% INJ 30 ML VIAL INJ ONE; +CELEBREX200 MG PO; +CLONAZEPAM1 MG PO; +DEXAMETHASONE SOD PHOS INJ 4 MG/ML SDV ONE; +FENTANYL CITRATE/PF 100MCG/2 ML INJ ONE; +LIDOCAINE HCL 2% LOCAL INJ 5 ML SDV VIAL INJ ONE; -MULTI-VITAMIN1 EACH; +MULTI-VITAMIN1 EACH PO; +NEURONTIN100 MG PO; +OMEPRAZOLE40 MG PO; +ONDANSETRON HCL INJ 2MG/ML 2ML 2 MG/ML VIAL ONE; +POVIDONE IODINE 0.05% 0.05 % ML PO ONE; +PROPOFOL IV EMULSION 10 MG/ML 20 ML VIAL ONE; +SEVOFLURANE INHAL SOLN 250 ML PEN BTL ONE; +SODIUM CHLORIDE 0.9% 50ML 50 ML ONE; +VITAMIN D310 MCG PO
[2021-03-05 11:05] VITALS: BP 141/78
== END | disposition home or self-care (01) ==
LOC: OR 05:35
PROVIDERS: ATTEND Podiatrist Foot & Ankle Surgery
DX: M86.9 Osteomyelitis, unspecified (principal); M20.41 Other hammer toe(s) (acquired), right foot; E11.9 Type 2 diabetes mellitus without complications; I25.10 Atherosclerotic heart disease of native coronary artery without angina pectoris; I10 Essential (primary) hypertension; I25.2 Old myocardial infarction; Z98.61 Coronary angioplasty status; I44.0 Atrioventricular block, first degree; Z01.812 Encounter for preprocedural laboratory examination; Z01.818 Encounter for other preprocedural examination; Z20.822 Contact with and (suspected) exposure to COVID-19; Z79.84 Long term (current) use of oral hypoglycemic drugs
CPT/HCPCS: 28285 ×2; 28810; 28825; 36415 ×2; 71046; 80048; 82948; 85025; 88305; 88311; C1713; J0131; J0690; J1100; J2001; J2405; J2704; J3010; U0002; 88304

== ENCOUNTER → 2021-06-14 | Outpatient (CLI) | payer MEDICARE ==
[~2021-06-14] MED LIST changes: -ACETAMINOPHEN 1000 MG/100 ML 100 ML IV ONE; -BUPIVACAINE HCL 0.5% INJ 30 ML VIAL INJ ONE; -DEXAMETHASONE SOD PHOS INJ 4 MG/ML SDV ONE; -FENTANYL CITRATE/PF 100MCG/2 ML INJ ONE; -LIDOCAINE HCL 2% LOCAL INJ 5 ML SDV VIAL INJ ONE; -ONDANSETRON HCL INJ 2MG/ML 2ML 2 MG/ML VIAL ONE; -POVIDONE IODINE 0.05% 0.05 % ML PO ONE; -PROPOFOL IV EMULSION 10 MG/ML 20 ML VIAL ONE; -SEVOFLURANE INHAL SOLN 250 ML PEN BTL ONE; -SODIUM CHLORIDE 0.9% 50ML 50 ML ONE
== END ==
LOC: RAD 12:26
PROVIDERS: ATTEND Family Medicine
DX: M79.631 Pain in right forearm (principal)

== ENCOUNTER → 2021-07-08 | Outpatient (CLI) | payer MEDICARE ==
[2021-07-05 12:01] LABS: BASOPHILS # (AUTO) 0.1 (0.0-0.1); BASOPHILS % 0.6 % (0.0-1.0); EOSINOPHILS # (AUTO) 0.8 (0.0-0.4); EOSINOPHILS % 5.2 % (0.0-6.0); HEMATOCRIT 44.5 % (38.2-49.6); HEMOGLOBIN 14.3 g/dL (14.0-18.0); LYMPHOCYTES # (AUTO) 2.2 (1.0-3.2); LYMPHOCYTES % 14.3 % (18.0-39.1); MEAN CORPUSCULAR HEMOGLOBIN 25.9 pg (28-32); MEAN CORPUSCULAR HGB CONC 32.1 g/dL (31-35); MEAN CORPUSCULAR VOLUME 80.6 fL (81-99); MONOCYTES # (AUTO) 1.5 (0.2-0.8); MONOCYTES % 9.9 % (4.4-11.3); NEUTROPHILS # (AUTO) 10.4 (2.1-6.9); NEUTROPHILS % 68.6 % (38.7-80.0); PLATELET COUNT 309 x10e3/uL (140-360); RED BLOOD COUNT 5.52 x10e6/uL (4.3-5.7); RED CELL DISTRIBUTION WIDTH 15.3 % (11.7-14.4)
[2021-07-05 12:29] LABS: ALBUMIN 3.2 g/dL (3.5-5.0); ALBUMIN/GLOBULIN RATIO 0.8 (0.8-2.0); ANION GAP 12.2 mmol/L (8-16); CALCIUM 9.3 mg/dL (8.4-10.2); CREATININE, SERUM 0.95 mg/dL (0.72-1.25); POTASSIUM 4.2 mmol/L (3.5-5.1)
[~2021-07-08] VITALS: Ht 165.1 cm; Wt 99.8 kg
[~2021-07-08] MED LIST changes: +IOPAMIDOL 370 MG/ML 200 ML INFUS..BTL INJ ONE; +SODIUM CHLORIDE 0.9% 100 ML ONE
== END ==
LOC: CATH LAB 07-08 07:00 → EDSTATUS 07-06 14:00 → LAB 07:00
PROVIDERS: ATTEND Psychiatry & Neurology Neurology
DX: Z01.818 Encounter for other preprocedural examination (principal); I48.91 Unspecified atrial fibrillation; Z20.822 Contact with and (suspected) exposure to COVID-19; Z53.8 Procedure and treatment not carried out for other reasons
CPT/HCPCS: 36415; 80053; 85025; U0002

== ENCOUNTER 2021-07-20 17:36 | Inpatient (IN) | payer MEDICARE, OTHER ==
[~2021-07-20] VITALS: Ht 167.6 cm; Wt 97.5 kg
[~2021-07-20 17:36] MED LIST changes: -IOPAMIDOL 370 MG/ML 200 ML INFUS..BTL INJ ONE; -SODIUM CHLORIDE 0.9% 100 ML ONE
[2021-07-20 18:10] VITALS: BP 95/58
[2021-07-20 20:12] VITALS: BP 78/44
[2021-07-20 20:15] VITALS: BP 78/44
[2021-07-20 20:27] LABS: HEMATOCRIT 36.4 % (38.2-49.6); HEMOGLOBIN 11.3 g/dL (14.0-18.0); MEAN CORPUSCULAR HEMOGLOBIN 25.6 pg (28-32); MEAN CORPUSCULAR VOLUME 82.5 fL (81-99); PLATELET COUNT 198 x10e3/uL (140-360); RED BLOOD COUNT 4.41 x10e6/uL (4.3-5.7); RED CELL DISTRIBUTION WIDTH 15.1 % (11.7-14.4)
[2021-07-20 20:49] LABS: ANION GAP 14.4 mmol/L (8-16); CALCIUM 9.3 mg/dL (8.4-10.2); CREATININE, SERUM 0.97 mg/dL (0.72-1.25); POTASSIUM 4.4 mmol/L (3.5-5.1)
[2021-07-20] MEDS ORDERED: SODIUM CHLORIDE 0.9% 250ML 250 ML ONE (21:31)
[2021-07-20] MEDS ORDERED: CALCIUM CARBON500 MG PO (21:42)
[2021-07-20] MEDS ORDERED: FAMOTIDINE20 MG PO (21:43)
[2021-07-20] MEDS ORDERED: ASPIRIN81 MG PO (21:44)
[2021-07-20] MEDS ORDERED: HYDROCODON-ACE1 EAC9 PO (21:45)
[2021-07-20] MEDS ORDERED: CRESTOR10 MG PO (21:46)
[2021-07-20] MEDS ORDERED: ELIQUIS5 MG PO ×2 (21:47→21:57)
[2021-07-20] MEDS ORDERED: FLECAINIDE ACE100 MG PO (21:47)
[2021-07-20] MEDS: PIPERACILLIN/TAZOBACTAM 3.375 GM in SODIUM CHLORIDE 0.9% 50ML 50 ML IV SCH (21:49)
[2021-07-20] MEDS: HYDROCODONE/APAP 5MG-325MG TAB PO PRN ×2 (22:06→22:43)
[2021-07-20 22:52] VITALS: BP 145/57
[2021-07-20 23:15] VITALS: BP 141/50
[2021-07-20] MEDS: Vancomycin IV 1 GM in SODIUM CHLORIDE 0.9% 250ML 250 ML IV SCH (23:24)
[2021-07-21] VITALS (7 sets, daily range): BP systolic 151–175; BP diastolic 66–87
[2021-07-21] MEDS ORDERED: DIPHENHYDRAMINE HCL 25 MG CAP PO PRN (01:00)
[2021-07-21] MEDS ORDERED: POTASSIUM CHLORIDE 20 MEQ TAB CR PO PRN (01:00)
[2021-07-21] MEDS ORDERED: ONDANSETRON HCL INJ 2MG/ML 2ML 2 MG/ML VIAL IV PRN (01:00)
[2021-07-21] MEDS ORDERED: DEXTROSE 50% SYRINGE 50 ML IV PRN ×2 (01:00)
[2021-07-21] MEDS ORDERED: BENZONATATE 100 MG CAP PO PRN (01:00)
[2021-07-21] MEDS ORDERED: DOCUSATE SODIUM 100 MG CAP PO PRN (01:00)
[2021-07-21] MEDS ORDERED: LIDOCAINE 4% PATCH TP PRN (01:00)
[2021-07-21] MEDS ORDERED: SIMETHICONE 80 MG CHEW PO PRN (01:00)
[2021-07-21] MEDS ORDERED: ALBUTEROL/IPRATROPIUM 3 ML NEB NEB PRN (01:00)
[2021-07-21] MEDS: MELATONIN 5 MG TABLET PO PRN (01:50)
[2021-07-21] MEDS: HYDROCODONE/APAP 5MG-325MG TAB PO PRN ×3 (04:07→20:47)
[2021-07-21] MEDS: PIPERACILLIN/TAZOBACTAM 3.375 GM in SODIUM CHLORIDE 0.9% 50ML 50 ML IV SCH ×3 (05:14→21:42)
[2021-07-21] MEDS ORDERED: PANTOPRAZOLE SOD 40 MG TABEC PO SCH (07:30)
[2021-07-21] MEDS: INSULIN LISPRO 100 UNIT/1 ML 3ML VIAL SQ SCH ×4 (07:30→20:41)
[2021-07-21] MEDS: FLECAINIDE ACETATE 100 MG TAB PO SCH ×2 (08:03→16:46)
[2021-07-21 08:22] LABS: BASOPHILS # (AUTO) 0.1 (0.0-0.1); BASOPHILS % 0.8 % (0.0-1.0); EOSINOPHILS # (AUTO) 0.4 (0.0-0.4); EOSINOPHILS % 2.7 % (0.0-6.0); HEMATOCRIT 35.8 % (38.2-49.6); HEMOGLOBIN 11.3 g/dL (14.0-18.0); LYMPHOCYTES # (AUTO) 2.4 (1.0-3.2); LYMPHOCYTES % 14.2 % (18.0-39.1); MEAN CORPUSCULAR HEMOGLOBIN 25.5 pg (28-32); MEAN CORPUSCULAR HGB CONC 31.6 g/dL (31-35); MEAN CORPUSCULAR VOLUME 80.6 fL (81-99); MONOCYTES # (AUTO) 2.2 (0.2-0.8); NEUTROPHILS # (AUTO) 11.3 (2.1-6.9); NEUTROPHILS % 68.3 % (38.7-80.0); PLATELET COUNT 202 x10e3/uL (140-360); RED BLOOD COUNT 4.44 x10e6/uL (4.3-5.7); RED CELL DISTRIBUTION WIDTH 15.1 % (11.7-14.4)
[2021-07-21] MEDS: RAMIPRIL 5 MG CAP PO SCH ×2 (08:40→16:45)
[2021-07-21] MEDS: PANTOPRAZOLE SOD 40 MG TABEC PO SCH ×2 (08:40→16:45)
[2021-07-21] MEDS: METFORMIN HCL 500 MG TAB CR PO SCH ×2 (08:40→16:45)
[2021-07-21] MEDS: GABAPENTIN 100 MG CAP PO SCH ×2 (08:40→16:46)
[2021-07-21] MEDS: SUCRALFATE 1 GM TAB PO SCH ×2 (08:40→16:45)
[2021-07-21] MEDS: METOPROLOL SUCCINATE 50 MG TAB XL PO SCH (08:41)
[2021-07-21 08:45] LABS: ANION GAP 15.3 mmol/L (8-16); CALCIUM 9.3 mg/dL (8.4-10.2); CREATININE, SERUM 0.85 mg/dL (0.72-1.25); MAGNESIUM 1.6 MG/DL (1.3-2.1); POTASSIUM 4.3 mmol/L (3.5-5.1)
[2021-07-21 09:07] LABS: THYROID STIMULATING HORMONE 2.596 uIU/mL (0.350-4.940)
[2021-07-21 09:21] LABS: ERYTHROCYTE SEDIMENTATION RATE 97 mm/hr (0-13)
[2021-07-21] MEDS ORDERED: GADOBENATE DIMEGLUMINE 1 ML IV ONE ×2 (11:01)
[2021-07-21] MEDS ORDERED: ALPRAZOLAM 1 MG TAB PO STA (11:27)
[2021-07-21] MEDS: TAMSULOSIN HCL 0.4 MG CAP PO SCH (20:43)
[2021-07-21] MEDS: SIMVASTATIN 40 MG TAB PO SCH (20:44)
[2021-07-21] MEDS: SERTRALINE HCL 50 MG TAB PO SCH (20:44)
[2021-07-21] MEDS: FAMOTIDINE 20 MG TAB PO SCH (20:44)
[2021-07-21] MEDS: MONTELUKAST SODIUM 10 MG TAB PO SCH (20:44)
[2021-07-21] MEDS: Vancomycin IV 1 GM in SODIUM CHLORIDE 0.9% 250ML 250 ML IV SCH (22:25)
[2021-07-21] MEDS: ACETAMINOPHEN 325 MG TAB PO PRN (23:28)
[2021-07-22] VITALS (8 sets, daily range): BP systolic 114–175; BP diastolic 63–97
[2021-07-22] MEDS: HYDROCODONE/APAP 5MG-325MG TAB PO PRN ×3 (02:30→20:50)
[2021-07-22 05:01] LABS: BASOPHILS # (AUTO) 0.1 (0.0-0.1); BASOPHILS % 0.7 % (0.0-1.0); EOSINOPHILS # (AUTO) 0.6 (0.0-0.4); EOSINOPHILS % 4.7 % (0.0-6.0); HEMATOCRIT 34.5 % (38.2-49.6); HEMOGLOBIN 11.2 g/dL (14.0-18.0); LYMPHOCYTES # (AUTO) 2.6 (1.0-3.2); LYMPHOCYTES % 18.9 % (18.0-39.1); MEAN CORPUSCULAR HEMOGLOBIN 25.6 pg (28-32); MEAN CORPUSCULAR HGB CONC 32.5 g/dL (31-35); MEAN CORPUSCULAR VOLUME 78.8 fL (81-99); MONOCYTES % 14.5 % (4.4-11.3); NEUTROPHILS # (AUTO) 8.2 (2.1-6.9); NEUTROPHILS % 59.7 % (38.7-80.0); PLATELET COUNT 195 x10e3/uL (140-360); RED BLOOD COUNT 4.38 x10e6/uL (4.3-5.7); RED CELL DISTRIBUTION WIDTH 15.3 % (11.7-14.4)
[2021-07-22 05:19] LABS: ANION GAP 15.1 mmol/L (8-16); CALCIUM 9.3 mg/dL (8.4-10.2); CREATININE, SERUM 0.85 mg/dL (0.72-1.25); POTASSIUM 4.1 mmol/L (3.5-5.1)
[2021-07-22] MEDS: PIPERACILLIN/TAZOBACTAM 3.375 GM in SODIUM CHLORIDE 0.9% 50ML 50 ML IV SCH ×3 (05:28→21:39)
[2021-07-22] MEDS: INSULIN LISPRO 100 UNIT/1 ML 3ML VIAL SQ SCH ×4 (07:30→20:48)
[2021-07-22] MEDS: PANTOPRAZOLE SOD 40 MG TABEC PO SCH ×2 (07:30→16:44)
[2021-07-22] MEDS: METFORMIN HCL 500 MG TAB CR PO SCH ×2 (08:08→16:44)
[2021-07-22] MEDS: SUCRALFATE 1 GM TAB PO SCH ×2 (08:08→16:44)
[2021-07-22] MEDS: GABAPENTIN 100 MG CAP PO SCH ×2 (08:08→16:44)
[2021-07-22] MEDS: FLECAINIDE ACETATE 100 MG TAB PO SCH ×2 (08:08→16:44)
[2021-07-22] MEDS: RAMIPRIL 5 MG CAP PO SCH ×2 (08:08→16:44)
[2021-07-22] MEDS ORDERED: BUPIVACAINE HCL 0.5% INJ 30 ML VIAL INJ ONE (10:10)
[2021-07-22] MEDS ORDERED: DEXAMETHASONE SOD PHOS INJ 4 MG/ML SDV ONE (10:10)
[2021-07-22] MEDS ORDERED: POVIDONE IODINE 0.05% 0.05 % ML PO ONE (12:13)
[2021-07-22] MEDS ORDERED: LIDOCAINE HCL 2% LOCAL INJ 5 ML SDV VIAL INJ ONE (12:13)
[2021-07-22] MEDS ORDERED: PROPOFOL IV EMULSION 10 MG/ML 20 ML VIAL ONE (12:13)
[2021-07-22] MEDS ORDERED: SEVOFLURANE INHAL SOLN 250 ML PEN BTL ONE (12:13)
[2021-07-22] MEDS ORDERED: ONDANSETRON HCL INJ 2MG/ML 2ML 2 MG/ML VIAL ONE (12:13)
[2021-07-22] MEDS ORDERED: FENTANYL CITRATE/PF 100MCG/2 ML INJ ONE (12:53)
[2021-07-22] MEDS: METOPROLOL SUCCINATE 50 MG TAB XL PO SCH (16:33)
[2021-07-22] MEDS: FAMOTIDINE 20 MG TAB PO SCH (20:48)
[2021-07-22] MEDS: MONTELUKAST SODIUM 10 MG TAB PO SCH (20:48)
[2021-07-22] MEDS: SERTRALINE HCL 50 MG TAB PO SCH (20:48)
[2021-07-22] MEDS: TAMSULOSIN HCL 0.4 MG CAP PO SCH (20:48)
[2021-07-22] MEDS: SIMVASTATIN 40 MG TAB PO SCH (20:48)
[2021-07-22] MEDS: Vancomycin IV 1 GM in SODIUM CHLORIDE 0.9% 250ML 250 ML IV SCH (23:02)
[2021-07-23] VITALS: BP 165/75
[2021-07-23] MEDS: HYDROCODONE/APAP 5MG-325MG TAB PO PRN ×3 (02:57→20:45)
[2021-07-23 04:00] VITALS: BP 160/65
[2021-07-23] MEDS: PIPERACILLIN/TAZOBACTAM 3.375 GM in SODIUM CHLORIDE 0.9% 50ML 50 ML IV SCH ×3 (05:27→22:01)
[2021-07-23] MEDS: ACETAMINOPHEN 325 MG TAB PO PRN (06:40)
[2021-07-23] MEDS: INSULIN LISPRO 100 UNIT/1 ML 3ML VIAL SQ SCH ×4 (08:00→21:00)
[2021-07-23] MEDS: PANTOPRAZOLE SOD 40 MG TABEC PO SCH ×2 (08:30→18:01)
[2021-07-23] MEDS: RAMIPRIL 5 MG CAP PO SCH ×2 (08:58→18:01)
[2021-07-23] MEDS: SUCRALFATE 1 GM TAB PO SCH ×2 (08:58→18:02)
[2021-07-23] MEDS: METFORMIN HCL 500 MG TAB CR PO SCH ×2 (08:59→18:02)
[2021-07-23] MEDS: GABAPENTIN 100 MG CAP PO SCH ×2 (08:59→18:02)
[2021-07-23 09:00] VITALS: BP 176/82
[2021-07-23] MEDS: METOPROLOL SUCCINATE 50 MG TAB XL PO SCH (09:00)
[2021-07-23] MEDS: FLECAINIDE ACETATE 100 MG TAB PO SCH ×2 (09:01→18:02)
[2021-07-23] MEDS ORDERED: FENTANYL CITRATE/PF 100MCG/2 ML INJ ONE (11:47)
[2021-07-23] MEDS ORDERED: MIDAZOLAM HCL 2 MG/2 ML VIAL ONE ×2 (11:47→12:13)
[2021-07-23] MEDS ORDERED: SODIUM CHLORIDE 0.9% 250ML 250 ML ONE (11:47)
[2021-07-23] MEDS ORDERED: HEPARIN SOD/SOD CHLORIDE 2,000 ML ONE (11:54)
[2021-07-23] MEDS ORDERED: LIDOCAINE HCL 2% LOCAL 20 ML VIAL ONE (11:54)
[2021-07-23] MEDS ORDERED: IOPAMIDOL 300MG/ML 100 ML INFUS..BTL IV ONE (11:55)
[2021-07-23] MEDS: Vancomycin IV 1 GM in SODIUM CHLORIDE 0.9% 250ML 250 ML IV SCH (20:28)
[2021-07-23] MEDS: SERTRALINE HCL 50 MG TAB PO SCH (20:35)
[2021-07-23] MEDS: SIMVASTATIN 40 MG TAB PO SCH (20:35)
[2021-07-23] MEDS: MONTELUKAST SODIUM 10 MG TAB PO SCH (20:35)
[2021-07-23] MEDS: FAMOTIDINE 20 MG TAB PO SCH (20:35)
[2021-07-23] MEDS: TAMSULOSIN HCL 0.4 MG CAP PO SCH (20:35)
[2021-07-23 21:00] VITALS: BP 159/76
[2021-07-23 21:13] VITALS: BP 159/76
[2021-07-23 21:15] VITALS: BP 159/76
[2021-07-24] VITALS (9 sets, daily range): BP systolic 141–181; BP diastolic 56–91
[2021-07-24] MEDS: MELATONIN 5 MG TABLET PO PRN ×2 (01:45→21:14)
[2021-07-24] MEDS: ACETAMINOPHEN 325 MG TAB PO PRN ×3 (01:45→18:27)
[2021-07-24] MEDS: PIPERACILLIN/TAZOBACTAM 3.375 GM in SODIUM CHLORIDE 0.9% 50ML 50 ML IV SCH ×3 (05:21→22:26)
[2021-07-24] MEDS: HYDROCODONE/APAP 5MG-325MG TAB PO PRN ×4 (05:23→23:46)
[2021-07-24 05:44] LABS: BASOPHILS # (AUTO) 0.1 (0.0-0.1); BASOPHILS % 0.8 % (0.0-1.0); EOSINOPHILS # (AUTO) 0.7 (0.0-0.4); EOSINOPHILS % 5.9 % (0.0-6.0); HEMATOCRIT 31.8 % (38.2-49.6); HEMOGLOBIN 10.1 g/dL (14.0-18.0); LYMPHOCYTES # (AUTO) 2.1 (1.0-3.2); LYMPHOCYTES % 18.4 % (18.0-39.1); MEAN CORPUSCULAR HEMOGLOBIN 25.1 pg (28-32); MEAN CORPUSCULAR HGB CONC 31.8 g/dL (31-35); MEAN CORPUSCULAR VOLUME 78.9 fL (81-99); MONOCYTES # (AUTO) 1.7 (0.2-0.8); MONOCYTES % 15.2 % (4.4-11.3); NEUTROPHILS # (AUTO) 6.7 (2.1-6.9); NEUTROPHILS % 58.4 % (38.7-80.0); PLATELET COUNT 200 x10e3/uL (140-360); RED BLOOD COUNT 4.03 x10e6/uL (4.3-5.7); RED CELL DISTRIBUTION WIDTH 15.3 % (11.7-14.4)
[2021-07-24 06:06] LABS: CALCIUM 8.6 mg/dL (8.4-10.2); CREATININE, SERUM 0.84 mg/dL (0.72-1.25)
[2021-07-24] MEDS: INSULIN LISPRO 100 UNIT/1 ML 3ML VIAL SQ SCH ×4 (07:30→21:16)
[2021-07-24] MEDS: Vancomycin IV 1 GM in SODIUM CHLORIDE 0.9% 250ML 250 ML IV SCH ×2 (08:59→20:02)
[2021-07-24] MEDS: FLECAINIDE ACETATE 100 MG TAB PO SCH ×2 (08:59→17:38)
[2021-07-24] MEDS: RAMIPRIL 5 MG CAP PO SCH ×2 (08:59→17:38)
[2021-07-24] MEDS: METFORMIN HCL 500 MG TAB CR PO SCH ×2 (08:59→17:38)
[2021-07-24] MEDS: GABAPENTIN 100 MG CAP PO SCH ×2 (08:59→17:38)
[2021-07-24] MEDS: SUCRALFATE 1 GM TAB PO SCH ×2 (08:59→17:38)
[2021-07-24] MEDS: PANTOPRAZOLE SOD 40 MG TABEC PO SCH ×2 (08:59→17:38)
[2021-07-24] MEDS: METOPROLOL SUCCINATE 50 MG TAB XL PO SCH (09:00)
[2021-07-24] MEDS: HYDRALAZINE HCL 20 MG/ML VIAL IV PRN (11:15)
[2021-07-24] MEDS: LOSARTAN POTASSIUM 100 MG TAB PO SCH (14:15)
[2021-07-24] MEDS: TAMSULOSIN HCL 0.4 MG CAP PO SCH (20:55)
[2021-07-24] MEDS: FAMOTIDINE 20 MG TAB PO SCH (20:55)
[2021-07-24] MEDS: MONTELUKAST SODIUM 10 MG TAB PO SCH (20:56)
[2021-07-24] MEDS: SERTRALINE HCL 50 MG TAB PO SCH (20:57)
[2021-07-24] MEDS: SIMVASTATIN 40 MG TAB PO SCH (20:57)
[2021-07-25] VITALS: BP 165/72
[2021-07-25] MEDS: ACETAMINOPHEN 325 MG TAB PO PRN (02:40)
[2021-07-25 04:00] VITALS: BP 171/79
[2021-07-25] MEDS: PIPERACILLIN/TAZOBACTAM 3.375 GM in SODIUM CHLORIDE 0.9% 50ML 50 ML IV SCH ×2 (05:23→14:00)
[2021-07-25] MEDS: HYDRALAZINE HCL 20 MG/ML VIAL IV PRN (06:22)
[2021-07-25 07:23] LABS: BASOPHILS # (AUTO) 0.1 (0.0-0.1); BASOPHILS % 0.8 % (0.0-1.0); EOSINOPHILS # (AUTO) 0.6 (0.0-0.4); EOSINOPHILS % 5.1 % (0.0-6.0); HEMOGLOBIN 10.5 g/dL (14.0-18.0); LYMPHOCYTES # (AUTO) 1.8 (1.0-3.2); LYMPHOCYTES % 15.1 % (18.0-39.1); MEAN CORPUSCULAR HEMOGLOBIN 25.5 pg (28-32); MEAN CORPUSCULAR HGB CONC 31.8 g/dL (31-35); MEAN CORPUSCULAR VOLUME 80.1 fL (81-99); MONOCYTES # (AUTO) 1.5 (0.2-0.8); MONOCYTES % 12.9 % (4.4-11.3); NEUTROPHILS # (AUTO) 7.6 (2.1-6.9); NEUTROPHILS % 65.1 % (38.7-80.0); PLATELET COUNT 199 x10e3/uL (140-360); RED BLOOD COUNT 4.12 x10e6/uL (4.3-5.7); RED CELL DISTRIBUTION WIDTH 15.4 % (11.7-14.4)
[2021-07-25] MEDS: INSULIN LISPRO 100 UNIT/1 ML 3ML VIAL SQ SCH ×2 (07:30→11:30)
[2021-07-25] MEDS: HYDROCODONE/APAP 5MG-325MG TAB PO PRN (07:35)
[2021-07-25 07:45] VITALS: BP 158/78
[2021-07-25 07:49] LABS: ANION GAP 12.7 mmol/L (8-16); CALCIUM 10.9 mg/dL (8.4-10.2); CREATININE, SERUM 0.85 mg/dL (0.72-1.25); POTASSIUM 3.7 mmol/L (3.5-5.1)
[2021-07-25] MEDS ORDERED: Vancomycin IV 1 GM VIAL ONE (08:04)
[2021-07-25 08:25] VITALS: BP 158/78
[2021-07-25] MEDS ORDERED: SODIUM CHLORIDE 0.9% 250ML 250 ML ONE (08:25)
[2021-07-25] MEDS: RAMIPRIL 5 MG CAP PO SCH (08:36)
[2021-07-25] MEDS: Vancomycin IV 1 GM in SODIUM CHLORIDE 0.9% 250ML 250 ML IV SCH (08:36)
[2021-07-25] MEDS: SUCRALFATE 1 GM TAB PO SCH (08:36)
[2021-07-25] MEDS: PANTOPRAZOLE SOD 40 MG TABEC PO SCH (08:36)
[2021-07-25] MEDS: GABAPENTIN 100 MG CAP PO SCH (08:37)
[2021-07-25] MEDS: METOPROLOL SUCCINATE 50 MG TAB XL PO SCH (08:37)
[2021-07-25] MEDS: FLECAINIDE ACETATE 100 MG TAB PO SCH (08:37)
[2021-07-25] MEDS: METFORMIN HCL 500 MG TAB CR PO SCH (08:37)
[2021-07-25] MEDS: LOSARTAN POTASSIUM 100 MG TAB PO SCH (08:37)
[2021-07-25 11:37] LABS: ANION GAP 12.7 mmol/L (8-16); CALCIUM 8.7 mg/dL (8.4-10.2); CREATININE, SERUM 0.85 mg/dL (0.72-1.25); POTASSIUM 3.7 mmol/L (3.5-5.1)
[2021-07-25 11:44] VITALS: BP 159/78
== END 2021-07-25 15:30 | disposition home or self-care (01) | DRG 854 ==
LOC: MED/SURG2 17:36
PROVIDERS: ADMIT Internal Medicine; ATTEND Internal Medicine
PROC: 0Y6S0Z0 Detachment at Left 2nd Toe, Complete, Open Approach (ICD-10-PCS; principal; 2021-07-19)
PROC: B4101ZZ Fluoroscopy of Abdominal Aorta using Low Osmolar Contrast (ICD-10-PCS; 2021-07-23)
PROC: B41G1ZZ Fluoroscopy of Left Lower Extremity Arteries using Low Osmolar Contrast (ICD-10-PCS; 2021-07-23)
DX: A41.9 Sepsis, unspecified organism (principal); E11.52 Type 2 diabetes mellitus with diabetic peripheral angiopathy with gangrene; L03.116 Cellulitis of left lower limb; M86.172 Other acute osteomyelitis, left ankle and foot; I96 Gangrene, not elsewhere classified; E11.69 Type 2 diabetes mellitus with other specified complication; E11.628 Type 2 diabetes mellitus with other skin complications; I25.10 Atherosclerotic heart disease of native coronary artery without angina pectoris; E11.42 Type 2 diabetes mellitus with diabetic polyneuropathy; S05.12XA Contusion of eyeball and orbital tissues, left eye, initial encounter; W18.39XA Other fall on same level, initial encounter; Z91.81 History of falling; E11.621 Type 2 diabetes mellitus with foot ulcer; Z79.899 Other long term (current) drug therapy; B95.62 Methicillin resistant Staphylococcus aureus infection as the cause of diseases classified elsewhere; M19.90 Unspecified osteoarthritis, unspecified site; Z68.34 Body mass index [BMI] 34.0-34.9, adult; Z20.822 Contact with and (suspected) exposure to COVID-19; J32.0 Chronic maxillary sinusitis; N40.0 Benign prostatic hyperplasia without lower urinary tract symptoms; E66.01 Morbid (severe) obesity due to excess calories
CPT/HCPCS: 36247; 36415; 70450; 70553; 75625; 75710; 80048; 80202; 82948; 83036; 83735; 84443; 85007; 85025; 85027; 85651; 86141; 87040; 87071; 87075; 87186; 87205; 88304; 88305; 88311; 93005; 94799; 97139; 99152; C1760; C1769; C1894; J0360; J1100; J2001; J2250; J2405; J2543; J3010; J3370; J7050; Q9967; U0002

== ENCOUNTER → 2021-10-28 | Outpatient (CLI) | payer OTHER ==
[~2021-10-28] MED LIST changes: +ASPIRIN81 MG PO; +CALCIUM CARBON500 MG PO; +CRESTOR10 MG PO; +ELIQUIS5 MG PO; +FAMOTIDINE20 MG PO; +FLECAINIDE ACE100 MG PO; +HYDROCODON-ACE1 EAC9 PO; +PATADAY2.5 ML
== END ==
LOC: LAB 06:07 → OR 06:07 → EDSTATUS 10:30
PROVIDERS: ATTEND Internal Medicine Gastroenterology
DX: R13.10 Dysphagia, unspecified (principal); R12 Heartburn; Z71.3 Dietary counseling and surveillance; E66.9 Obesity, unspecified; E11.9 Type 2 diabetes mellitus without complications; I10 Essential (primary) hypertension; Z01.812 Encounter for preprocedural laboratory examination; Z20.822 Contact with and (suspected) exposure to COVID-19; Z68.35 Body mass index [BMI] 35.0-35.9, adult; Z53.09 Procedure and treatment not carried out because of other contraindication
CPT/HCPCS: 36415; 82948; U0002

== ENCOUNTER 2021-11-21 16:29 | Emergency (ER) | payer MEDICARE, OTHER ==
[~2021-11-21] VITALS: Ht 320 cm; Wt 97.5 kg
== END 2021-11-21 18:38 | disposition home or self-care (01) ==
LOC: ER 17:14
DX: S81.811A Laceration without foreign body, right lower leg, initial encounter (principal); E11.40 Type 2 diabetes mellitus with diabetic neuropathy, unspecified; M10.9 Gout, unspecified; Z95.5 Presence of coronary angioplasty implant and graft; Z86.12 Personal history of poliomyelitis
CPT/HCPCS: 99283

== ENCOUNTER → 2022-04-21 | Day surgery (SDC) | payer MEDICARE, OTHER ==
[2022-04-12 13:45] LABS: BASOPHILS # (AUTO) 0.1 (0.0-0.1); EOSINOPHILS # (AUTO) 0.4 (0.0-0.4); HEMATOCRIT 39.1 % (38.2-49.6); HEMOGLOBIN 12.1 g/dL (14.0-18.0); LYMPHOCYTES # (AUTO) 2.6 (1.0-3.2); LYMPHOCYTES % 24.1 % (18.0-39.1); MEAN CORPUSCULAR HEMOGLOBIN 24.9 pg (28-32); MEAN CORPUSCULAR HGB CONC 30.9 g/dL (31-35); MEAN CORPUSCULAR VOLUME 80.6 fL (81-99); MONOCYTES # (AUTO) 1.2 (0.2-0.8); MONOCYTES % 11.3 % (4.4-11.3); NEUTROPHILS # (AUTO) 6.4 (2.1-6.9); NEUTROPHILS % 59.2 % (38.7-80.0); PLATELET COUNT 208 x10e3/uL (140-360); RED BLOOD COUNT 4.85 x10e6/uL (4.3-5.7); RED CELL DISTRIBUTION WIDTH 14.9 % (11.7-14.4)
[2022-04-21 10:49] VITALS: BP 150/80
== END | disposition home or self-care (01) ==
LOC: OR 07:42
PROVIDERS: ATTEND Internal Medicine Gastroenterology
DX: K29.50 Unspecified chronic gastritis without bleeding (principal); K22.2 Esophageal obstruction; K21.9 Gastro-esophageal reflux disease without esophagitis; E11.9 Type 2 diabetes mellitus without complications; R00.1 Bradycardia, unspecified; I25.10 Atherosclerotic heart disease of native coronary artery without angina pectoris; I25.2 Old myocardial infarction; E78.00 Pure hypercholesterolemia, unspecified; I10 Essential (primary) hypertension; M06.9 Rheumatoid arthritis, unspecified; M54.9 Dorsalgia, unspecified; R06.83 Snoring; F32.A Depression, unspecified; Z01.810 Encounter for preprocedural cardiovascular examination; Z01.812 Encounter for preprocedural laboratory examination; Z79.84 Long term (current) use of oral hypoglycemic drugs; Z79.899 Other long term (current) drug therapy; Z95.5 Presence of coronary angioplasty implant and graft
CPT/HCPCS: 36415; 43233; 43239; 82948; 85025; 88305; 88312; 88342; 93005

== ENCOUNTER 2022-08-24 14:37 | Outpatient (RCR) | payer MEDICARE, OTHER | END 2022-09-23 | LOC: OT 14:37 | PROVIDERS: ATTEND Orthopaedic Surgery | DX: M25.511 Pain in right shoulder (principal) ==